=== PATIENT | male | born 1965 | race Caucasian/White ===

== ENCOUNTER 2017-11-25 02:26 | Observation (INO) | payer MEDICARE ==
[~2017-11-25] VITALS: Ht 175.3 cm; Wt 115.8 kg
[~2017-11-25 02:26] MED LIST: CEFD300C37 PO; LISI5TAB7 PO; METF500T PO; PRED20TA PO; QUET100T PO; QUET25TA PO
[2017-11-25 03:02] LABS: BASOPHILS # (AUTO) 0.03 x10^3/uL (0-0.1); BASOPHILS % (AUTO) 0 % (0-1); EOSINOPHILS # (AUTO) 0.43 x10^3/uL (0-0.4); EOSINOPHILS % (AUTO) 4 % (1-7); LYMPHOCYTES # (AUTO) 2.11 x10^3/uL (1-3.4); LYMPHOCYTES % (AUTO) 20 % (22-44); MD NO; MEAN CORPUSCULAR HEMOGLOBIN 27.8 pg (27.5-34.5); MEAN CORPUSCULAR HGB CONC 32.8 g/dL (33.2-36.2); MEAN CORPUSCULAR VOLUME 84.6 fL (81-97); MEAN PLATELET VOLUME 8.1 fL (7.4-10.4); MONOCYTES # (AUTO) 0.83 x10^3/uL (0.2-0.8); MONOCYTES % (AUTO) 8 % (2-9); NEUTROPHILS # (AUTO) 6.95 x10^3/uL (1.8-6.8); NEUTROPHILS % (AUTO) 67 % (42-75); PLATELET COUNT 353 x10^3/uL (130-400); RED BLOOD COUNT 5.38 x10^6/uL (4.38-5.82)
[2017-11-25 03:13] LABS: ALBUMIN 3.5 g/dL (3.4-5.0); ANION GAP 7 mmol/L (5-15); CALCIUM 8.6 mg/dL (8.5-10.1); CHLORIDE 106 mmol/L (98-107); CREATININE 1.01 mg/dL (0.7-1.3); SALICYLATE LEVEL 1.7 mg/dL (2.8-20.0)
[2017-11-25 03:15] LABS: AMPHETAMINE SCREEN, URINE Negative (Negative); BARBITURATE SCREEN, URINE Negative (Negative); BENZODIAZEPINE SCREEN, URINE Negative (Negative); CANNABINOID SCREEN, URINE Negative (Negative); COCAINE SCREEN, URINE Negative (Negative); METHADONE SCREEN, URINE Negative (Negative); OPIATE SCREEN, URINE Negative (Negative)
[2017-11-25 03:24] LABS: ACETAMINOPHEN < 2 mcg/mL (10-30)
[2017-11-25] MEDS ORDERED: ZIPR60CA2 PO (03:46)
[2017-11-25] MEDS ORDERED: ACETAMINOPHEN 325 MG TABLET PO PRN (09:30)
[2017-11-25] MEDS ORDERED: BENZTROPINE 1 MG TABLET PO PRN (09:30)
[2017-11-25] MEDS ORDERED: ZIPRASIDONE 20MG CAPSULE ONE (09:42)
[2017-11-25 14:33] VITALS: BP 130/81
[2017-11-25] MEDS: LISINOPRIL 5 MG TABLET PO SCH (15:30)
[2017-11-25] MEDS: ZIPRASIDONE 20MG CAPSULE PO SCH (16:30)
[2017-11-25 20:37] VITALS: BP 104/67
[2017-11-26 08:00] VITALS: BP 110/75
[2017-11-26] MEDS: LISINOPRIL 5 MG TABLET PO SCH (09:08)
[2017-11-26] MEDS: ZIPRASIDONE 20MG CAPSULE PO SCH (09:08)
[2017-11-26 19:23] VITALS: BP 140/76
[2017-11-26 21:01] VITALS: BP 124/87
[2017-11-26] MEDS: ZIPRASIDONE 20MG CAPSULE PO PRN (21:13)
[2017-11-27 08:00] VITALS: BP 116/81
[2017-11-27] MEDS: LISINOPRIL 5 MG TABLET PO SCH (08:03)
[2017-11-27] MEDS: ZIPRASIDONE 20MG CAPSULE PO SCH (08:04)
[2017-11-27 20:00] VITALS: BP 115/75
[2017-11-27] MEDS: ZIPRASIDONE 20MG CAPSULE PO PRN (20:10)
[2017-11-28 08:21] VITALS: BP 124/86
[2017-11-28] MEDS: LISINOPRIL 5 MG TABLET PO SCH (08:52)
[2017-11-28] MEDS: ZIPRASIDONE 20MG CAPSULE PO SCH (08:52)
[2017-11-28] MEDS ORDERED: ZIPRASIDONE 20MG CAPSULE PO ONE (12:00)
[2017-11-28 19:23] VITALS: BP 127/85
[2017-11-28] MEDS ORDERED: DIPHENHYDRAMINE 50 MG CAPSULE PO PRN (20:30)
[2017-11-29 07:54] VITALS: BP 115/82
[2017-11-29] MEDS: LISINOPRIL 5 MG TABLET PO SCH (08:30)
[2017-11-29] MEDS ORDERED: ZIPR20CA2 PO (10:51)
[2017-11-29] MEDS ORDERED: LISI5TAB7 PO (10:51)
[2017-11-29] MEDS ORDERED: ZIPRASIDONE 20MG CAPSULE PO SCH ×2 (17:00)
[2017-11-29 19:32] VITALS: BP 105/63
== END 2017-11-29 19:33 | disposition home or self-care (01) ==
LOC: ED 05:16 → EDIP 07:12 → 2N 14:20
PROVIDERS: ADMIT Internal Medicine; ATTEND Internal Medicine
DX: R45.851 Suicidal ideations (principal); F20.0 Paranoid schizophrenia; F20.1 Disorganized schizophrenia; I10 Essential (primary) hypertension; E66.01 Morbid (severe) obesity due to excess calories; F17.210 Nicotine dependence, cigarettes, uncomplicated; Z59.0 Homelessness; Z91.5 Personal history of self-harm
CPT/HCPCS: 36415; 80048; 80307; 80329; 82040; 85025; 99285; G0378; G0479; G0480

== ENCOUNTER 2018-01-17 08:45 | Emergency (ER) | payer MEDICARE, MEDICAID ==
[~2018-01-17] VITALS: Ht 175.3 cm; Wt 113.3 kg
[~2018-01-17 08:45] MED LIST changes: +ZIPR20CA2 PO; +ZIPR60CA2 PO
[2018-01-17 08:52] VITALS: BP 124/79
[2018-01-17] MEDS ORDERED: METHOCARBAMOL 750 MG TABLET ONE (09:57)
[2018-01-17] MEDS ORDERED: KETOROLAC 30 MG/1 ML ONE (09:57)
[2018-01-17] MEDS ORDERED: METHOCARBAMOL 750 MG TABLET PO ONE (10:00)
[2018-01-17] MEDS ORDERED: KETOROLAC 30 MG/1 ML IM ONE (10:00)
== END 2018-01-17 11:54 | disposition home or self-care (01) ==
LOC: ED 09:59
DX: M54.6 Pain in thoracic spine (principal); I10 Essential (primary) hypertension
CPT/HCPCS: 72072; 72110; 96372; 99284; J1885

== ENCOUNTER 2018-01-27 17:00 | Emergency (ER) | payer MEDICARE, MEDICAID ==
[~2018-01-27] VITALS: Ht 175.3 cm; Wt 111.0 kg
[2018-01-27 17:49] LABS: BASOPHILS # (AUTO) 0.02 x10^3/uL (0-0.1); BASOPHILS % (AUTO) 0 % (0-1); EOSINOPHILS # (AUTO) 0.22 x10^3/uL (0-0.4); EOSINOPHILS % (AUTO) 2 % (1-7); LYMPHOCYTES # (AUTO) 1.93 x10^3/uL (1-3.4); LYMPHOCYTES % (AUTO) 14 % (22-44); MD NO; MEAN CORPUSCULAR HEMOGLOBIN 27.9 pg (27.5-34.5); MEAN CORPUSCULAR HGB CONC 33.2 g/dL (33.2-36.2); MEAN PLATELET VOLUME 8.5 fL (7.4-10.4); MONOCYTES # (AUTO) 0.84 x10^3/uL (0.2-0.8); MONOCYTES % (AUTO) 6 % (2-9); NEUTROPHILS # (AUTO) 11.29 x10^3/uL (1.8-6.8); NEUTROPHILS % (AUTO) 79 % (42-75); PLATELET COUNT 337 x10^3/uL (130-400); RED BLOOD COUNT 5.61 x10^6/uL (4.38-5.82); RED CELL DISTRIBUTION WIDTH 16.4 % (9.4-14.8)
[2018-01-27 17:55] LABS: ALBUMIN 3.8 g/dL (3.4-5.0); ANION GAP 8 mmol/L (5-15); CALCIUM 8.4 mg/dL (8.5-10.1); CHLORIDE 104 mmol/L (98-107); SALICYLATE LEVEL 2.8 mg/dL (2.8-20.0)
[2018-01-27 17:58] LABS: ALANINE AMINOTRANSFERASE 29 U/L (12-78); ALKALINE PHOSPHATASE 128 U/L (45-117); BILIRUBIN,TOTAL 0.4 mg/dL (0.2-1.0); CREATININE 0.94 mg/dL (0.7-1.3); TOTAL PROTEIN 7.3 g/dL (6.4-8.2)
[2018-01-27 17:59] VITALS: BP 132/83
[2018-01-27 18:01] LABS: ACETAMINOPHEN < 2 mcg/mL (10-30)
[2018-01-27 19:07] LABS: AMPHETAMINE SCREEN, URINE Negative (Negative); BARBITURATE SCREEN, URINE Negative (Negative); BENZODIAZEPINE SCREEN, URINE Negative (Negative); CANNABINOID SCREEN, URINE Negative (Negative); COCAINE SCREEN, URINE Negative (Negative); METHADONE SCREEN, URINE Negative (Negative); OPIATE SCREEN, URINE Negative (Negative)
[2018-01-27] MEDS ORDERED: OLANZAPINE 10 MG TABLET ONE (19:50)
[2018-01-27] MEDS ORDERED: OLANZAPINE 10 MG TABLET PO ONE (20:00)
== END 2018-01-27 20:54 | disposition home or self-care (01) ==
LOC: ED 20:48
DX: F32.9 Major depressive disorder, single episode, unspecified (principal); Z76.5 Malingerer [conscious simulation]; F25.9 Schizoaffective disorder, unspecified; I10 Essential (primary) hypertension; E11.9 Type 2 diabetes mellitus without complications; M19.90 Unspecified osteoarthritis, unspecified site; Z79.899 Other long term (current) drug therapy
CPT/HCPCS: 36415; 80053; 80307; 80329; 85025; 99284; G0480

== ENCOUNTER 2018-02-07 10:07 | Observation (INO) | payer MEDICAID, MEDICARE, OTHER ==
[~2018-02-07] VITALS: Ht 175.3 cm; Wt 110.4 kg
[2018-02-07 11:16] LABS: MEAN CORPUSCULAR VOLUME 83.6 fL (81-97)
[2018-02-07 11:17] LABS: BASOPHILS # (AUTO) 0.03 x10^3/uL (0-0.1); BASOPHILS % (AUTO) 0 % (0-1); EOSINOPHILS # (AUTO) 0.51 x10^3/uL (0-0.4); EOSINOPHILS % (AUTO) 4 % (1-7); LYMPHOCYTES # (AUTO) 1.39 x10^3/uL (1-3.4); LYMPHOCYTES % (AUTO) 11 % (22-44); MD NO; MEAN CORPUSCULAR HEMOGLOBIN 27.2 pg (27.5-34.5); MEAN CORPUSCULAR HGB CONC 32.5 g/dL (33.2-36.2); MONOCYTES # (AUTO) 0.61 x10^3/uL (0.2-0.8); MONOCYTES % (AUTO) 5 % (2-9); NEUTROPHILS # (AUTO) 9.72 x10^3/uL (1.8-6.8); NEUTROPHILS % (AUTO) 79 % (42-75); PLATELET COUNT 388 x10^3/uL (130-400); RED CELL DISTRIBUTION WIDTH 15.9 % (9.4-14.8)
[2018-02-07 11:26] LABS: ALBUMIN 3.5 g/dL (3.4-5.0); ANION GAP 9 mmol/L (5-15); CALCIUM 8.4 mg/dL (8.5-10.1); CHLORIDE 106 mmol/L (98-107); CREATININE 0.96 mg/dL (0.7-1.3)
[2018-02-07 11:38] LABS: ACETAMINOPHEN < 2 mcg/mL (10-30)
[2018-02-07 11:42] LABS: AMPHETAMINE SCREEN, URINE Negative (Negative); BARBITURATE SCREEN, URINE Negative (Negative); BENZODIAZEPINE SCREEN, URINE Negative (Negative); CANNABINOID SCREEN, URINE Negative (Negative); COCAINE SCREEN, URINE Negative (Negative); METHADONE SCREEN, URINE Negative (Negative); OPIATE SCREEN, URINE Negative (Negative)
[2018-02-07] MEDS ORDERED: POLYETHYLENE GLYCOL 17 GM PACKET PO PRN (12:30)
[2018-02-07] MEDS ORDERED: ZIPRASIDONE 20 MG INJ IM PRN (12:30)
[2018-02-07] MEDS ORDERED: ACETAMINOPHEN 325 MG TABLET PO PRN (12:30)
[2018-02-07] MEDS ORDERED: ZIPRASIDONE 20MG CAPSULE PO PRN (12:30)
[2018-02-07] MEDS ORDERED: ONDANSETRON ODT 4 MG PO PRN (12:30)
[2018-02-07] MEDS: LISINOPRIL 5 MG TABLET PO SCH (13:02)
[2018-02-07] MEDS ORDERED: ZIPRASIDONE 20MG CAPSULE ONE (16:44)
[2018-02-07] MEDS: ZIPRASIDONE 20MG CAPSULE PO SCH (16:46)
[2018-02-08] MEDS: LISINOPRIL 5 MG TABLET PO SCH (09:08)
[2018-02-08 23:53] VITALS: BP 136/91
[2018-02-09] MEDS: ZIPRASIDONE 20MG CAPSULE PO SCH (00:11)
[2018-02-09 08:55] VITALS: BP 115/71
[2018-02-09] MEDS: LISINOPRIL 5 MG TABLET PO SCH (08:58)
== END 2018-02-09 13:02 ==
LOC: SUATTDRO 12:08 → ED 12:15 → EDIP 12:16 → ED 12:25 → 2N 02-08 23:47
PROVIDERS: ADMIT Family Medicine; ATTEND Family Medicine
DX: R45.851 Suicidal ideations (principal); R44.0 Auditory hallucinations; F33.2 Major depressive disorder, recurrent severe without psychotic features; F20.0 Paranoid schizophrenia; I10 Essential (primary) hypertension; F17.210 Nicotine dependence, cigarettes, uncomplicated; E11.9 Type 2 diabetes mellitus without complications; Z59.0 Homelessness
CPT/HCPCS: 36415; 80048; 80307; 80329; 82040; 85025; 99285; G0378; G0480

== ENCOUNTER 2018-02-18 20:09 | Observation (INO) | payer MEDICARE, MEDICAID ==
[~2018-02-18] VITALS: Ht 175.3 cm; Wt 107.5 kg
[2018-02-18 20:44] LABS: BASOPHILS # (AUTO) 0.03 x10^3/uL (0-0.1); BASOPHILS % (AUTO) 0 % (0-1); EOSINOPHILS # (AUTO) 0.29 x10^3/uL (0-0.4); EOSINOPHILS % (AUTO) 2 % (1-7); LYMPHOCYTES # (AUTO) 1.76 x10^3/uL (1-3.4); LYMPHOCYTES % (AUTO) 12 % (22-44); MD NO; MEAN CORPUSCULAR HEMOGLOBIN 27.3 pg (27.5-34.5); MEAN CORPUSCULAR HGB CONC 32.9 g/dL (33.2-36.2); MEAN CORPUSCULAR VOLUME 83.2 fL (81-97); MEAN PLATELET VOLUME 8.4 fL (7.4-10.4); MONOCYTES # (AUTO) 0.75 x10^3/uL (0.2-0.8); MONOCYTES % (AUTO) 5 % (2-9); NEUTROPHILS # (AUTO) 12.41 x10^3/uL (1.8-6.8); NEUTROPHILS % (AUTO) 81 % (42-75); PLATELET COUNT 389 x10^3/uL (130-400); RED BLOOD COUNT 5.94 x10^6/uL (4.38-5.82); RED CELL DISTRIBUTION WIDTH 15.9 % (9.4-14.8)
[2018-02-18 20:55] LABS: ALBUMIN 3.7 g/dL (3.4-5.0); ANION GAP 7 mmol/L (5-15); CALCIUM 8.7 mg/dL (8.5-10.1); CHLORIDE 108 mmol/L (98-107); CREATININE 1.14 mg/dL (0.7-1.3)
[2018-02-18 20:56] LABS: ACETAMINOPHEN < 2 mcg/mL (10-30); SALICYLATE LEVEL < 1.7 mg/dL (2.8-20.0)
[2018-02-18 21:46] LABS: AMPHETAMINE SCREEN, URINE Negative (Negative); BARBITURATE SCREEN, URINE Negative (Negative); BENZODIAZEPINE SCREEN, URINE Negative (Negative); CANNABINOID SCREEN, URINE Negative (Negative); COCAINE SCREEN, URINE Negative (Negative); METHADONE SCREEN, URINE Negative (Negative); OPIATE SCREEN, URINE Negative (Negative)
[2018-02-19] MEDS ORDERED: DOCUSATE 100 MG CAPSULE PO PRN (03:00)
[2018-02-19] MEDS ORDERED: ONDANSETRON ODT 4 MG PO PRN (03:00)
[2018-02-19] MEDS ORDERED: ACETAMINOPHEN 325 MG TABLET PO PRN (03:00)
[2018-02-19 03:29] VITALS: BP 133/80
[2018-02-19] MEDS: OLANZAPINE 10 MG TABLET PO SCH (08:47)
[2018-02-19] MEDS: LISINOPRIL 5 MG TABLET PO SCH (08:47)
[2018-02-19] MEDS: NICOTINE 7 MG/24 HR PATCH.TD24 TD SCH (08:52)
[2018-02-19 08:59] VITALS: BP 119/76
[2018-02-19 19:53] VITALS: BP 124/84
[2018-02-20 08:14] VITALS: BP 126/75
[2018-02-20] MEDS: NICOTINE 7 MG/24 HR PATCH.TD24 TD SCH (08:18)
[2018-02-20] MEDS: OLANZAPINE 10 MG TABLET PO SCH (08:18)
[2018-02-20] MEDS: LISINOPRIL 5 MG TABLET PO SCH (08:18)
[2018-02-20 19:28] VITALS: BP 113/71
[2018-02-21 08:00] VITALS: BP 106/69
[2018-02-21] MEDS: OLANZAPINE 10 MG TABLET PO SCH ×2 (08:47→20:58)
[2018-02-21] MEDS: LISINOPRIL 5 MG TABLET PO SCH (08:47)
[2018-02-21] MEDS: NICOTINE 7 MG/24 HR PATCH.TD24 TD SCH (08:50)
[2018-02-21 20:00] VITALS: BP 120/79
[2018-02-22 07:30] VITALS: BP 100/64
[2018-02-22] MEDS: NICOTINE 7 MG/24 HR PATCH.TD24 TD SCH (08:51)
[2018-02-22] MEDS: LISINOPRIL 5 MG TABLET PO SCH (08:51)
[2018-02-22 20:16] VITALS: BP 134/78
[2018-02-22] MEDS: OLANZAPINE 10 MG TABLET PO SCH (20:34)
[2018-02-23 07:37] VITALS: BP 110/75
[2018-02-23] MEDS: NICOTINE 7 MG/24 HR PATCH.TD24 TD SCH (09:00)
[2018-02-23] MEDS: LISINOPRIL 5 MG TABLET PO SCH (09:55)
[2018-02-23 19:55] VITALS: BP 126/83
[2018-02-23] MEDS: OLANZAPINE 10 MG TABLET PO SCH (20:23)
[2018-02-24] MEDS: NICOTINE 7 MG/24 HR PATCH.TD24 TD SCH (07:07)
[2018-02-24 08:28] VITALS: BP 109/74
[2018-02-24] MEDS: LISINOPRIL 5 MG TABLET PO SCH (09:03)
[2018-02-24] MEDS ORDERED: OLAN10TA9 PO (15:33)
== END 2018-02-24 16:17 | disposition home or self-care (01) ==
LOC: ED 23:59 → INTOOBSV 02-19 02:46 → EDIP 02-19 02:46 → 3E 02-19 03:25
PROVIDERS: ADMIT Internal Medicine; ATTEND Internal Medicine
DX: F25.9 Schizoaffective disorder, unspecified (principal); F23 Brief psychotic disorder; R45.851 Suicidal ideations; I10 Essential (primary) hypertension; E11.9 Type 2 diabetes mellitus without complications; R44.0 Auditory hallucinations; R44.1 Visual hallucinations; B86 Scabies; F32.9 Major depressive disorder, single episode, unspecified; F17.200 Nicotine dependence, unspecified, uncomplicated; Z91.14 Patient's other noncompliance with medication regimen; Z59.0 Homelessness
CPT/HCPCS: 36415; 80048; 80307; 80329; 82040; 85025; 99285; G0378; G0480

== ENCOUNTER 2018-03-02 00:37 | Emergency (ER) | payer MEDICARE, MEDICAID ==
[~2018-03-02] VITALS: Ht 175.3 cm; Wt 113.1 kg
[~2018-03-02 00:37] MED LIST changes: +OLAN10TA9 PO
[2018-03-02 00:40] VITALS: BP 163/94
== END 2018-03-02 02:07 | disposition home or self-care (01) ==
LOC: ED 01:13
DX: F32.9 Major depressive disorder, single episode, unspecified (principal); Z72.89 Other problems related to lifestyle; E11.9 Type 2 diabetes mellitus without complications; I10 Essential (primary) hypertension
CPT/HCPCS: 99284

== ENCOUNTER 2018-04-17 12:46 | Observation (INO) | payer MEDICARE, MEDICAID ==
[~2018-04-17] VITALS: Ht 175.3 cm; Wt 100.0 kg
[2018-04-17 13:43] LABS: BASOPHILS # (AUTO) 0.03 x10^3/uL (0-0.1); BASOPHILS % (AUTO) 0 % (0-1); EOSINOPHILS % (AUTO) 4 % (1-7); LYMPHOCYTES # (AUTO) 2.08 x10^3/uL (1-3.4); LYMPHOCYTES % (AUTO) 19 % (22-44); MD NO; MEAN CORPUSCULAR HEMOGLOBIN 27.3 pg (27.5-34.5); MEAN CORPUSCULAR VOLUME 82.9 fL (81-97); MONOCYTES # (AUTO) 0.71 x10^3/uL (0.2-0.8); MONOCYTES % (AUTO) 7 % (2-9); NEUTROPHILS # (AUTO) 7.51 x10^3/uL (1.8-6.8); NEUTROPHILS % (AUTO) 70 % (42-75); PLATELET COUNT 386 x10^3/uL (130-400); RED BLOOD COUNT 5.83 x10^6/uL (4.38-5.82); RED CELL DISTRIBUTION WIDTH 16.7 % (9.4-14.8)
[2018-04-17 13:53] LABS: ALBUMIN 3.5 g/dL (3.4-5.0); ANION GAP 8 mmol/L (5-15); CALCIUM 8.3 mg/dL (8.5-10.1); CHLORIDE 108 mmol/L (98-107); CREATININE 0.89 mg/dL (0.7-1.3); SALICYLATE LEVEL 2.4 mg/dL (2.8-20.0)
[2018-04-17 14:00] LABS: ACETAMINOPHEN < 2 mcg/mL (10-30)
[2018-04-17 14:36] LABS: AMPHETAMINE SCREEN, URINE Negative (Negative); BARBITURATE SCREEN, URINE Negative (Negative); BENZODIAZEPINE SCREEN, URINE Negative (Negative); CANNABINOID SCREEN, URINE Negative (Negative); COCAINE SCREEN, URINE Negative (Negative); METHADONE SCREEN, URINE Negative (Negative); OPIATE SCREEN, URINE Negative (Negative)
[2018-04-17] MEDS ORDERED: OLAN2.5T10 PO (14:48)
[2018-04-17] MEDS ORDERED: LISI-167 PO (14:48)
[2018-04-17] MEDS ORDERED: ACETAMINOPHEN 325 MG TABLET PO PRN (16:30)
[2018-04-17] MEDS ORDERED: LORazepam 1MG TABLET PO PRN (16:30)
[2018-04-17] MEDS ORDERED: ONDANSETRON ODT 4 MG PO PRN (16:30)
[2018-04-18] MEDS ORDERED: OLANZAPINE 2.5 MG TABLET ONE (09:42)
[2018-04-18] MEDS ORDERED: LISINOPRIL 10 MG TABLET ONE (09:42)
[2018-04-18] MEDS ORDERED: SERTRALINE 50MG TABLET ONE (09:43)
[2018-04-18] MEDS: OLANZAPINE 2.5 MG TABLET PO SCH (09:47)
[2018-04-18] MEDS: LISINOPRIL 10 MG TABLET PO SCH (09:47)
[2018-04-18] MEDS: SERTRALINE 50MG TABLET PO SCH (09:47)
[2018-04-18 21:58] VITALS: BP 127/94
[2018-04-19 08:03] VITALS: BP 133/85
[2018-04-19] MEDS: OLANZAPINE 2.5 MG TABLET PO SCH (09:01)
[2018-04-19] MEDS: LISINOPRIL 10 MG TABLET PO SCH (09:01)
[2018-04-19] MEDS: SERTRALINE 50MG TABLET PO SCH (09:01)
[2018-04-19 19:44] VITALS: BP 128/76
[2018-04-20 07:53] VITALS: BP 123/81
[2018-04-20] MEDS: SERTRALINE 50MG TABLET PO SCH (08:34)
[2018-04-20] MEDS: OLANZAPINE 2.5 MG TABLET PO SCH (08:34)
[2018-04-20] MEDS: LISINOPRIL 10 MG TABLET PO SCH (08:34)
[2018-04-20 20:06] VITALS: BP 139/82
[2018-04-21 07:30] VITALS: BP 87/58
[2018-04-21] MEDS: LISINOPRIL 10 MG TABLET PO SCH (09:00)
[2018-04-21] MEDS: OLANZAPINE 2.5 MG TABLET PO SCH (09:53)
[2018-04-21] MEDS: SERTRALINE 50MG TABLET PO SCH (09:54)
[2018-04-21 19:51] VITALS: BP 131/84
[2018-04-22 07:38] VITALS: BP 124/82
[2018-04-22] MEDS: SERTRALINE 50MG TABLET PO SCH (08:44)
[2018-04-22] MEDS: OLANZAPINE 2.5 MG TABLET PO SCH (08:44)
[2018-04-22] MEDS: LISINOPRIL 10 MG TABLET PO SCH (08:44)
[2018-04-22 19:33] VITALS: BP 132/77
[2018-04-23 07:41] VITALS: BP 112/80
[2018-04-23] MEDS: SERTRALINE 50MG TABLET PO SCH (09:28)
[2018-04-23] MEDS: LISINOPRIL 10 MG TABLET PO SCH (09:28)
[2018-04-23] MEDS: OLANZAPINE 2.5 MG TABLET PO SCH (09:28)
== END 2018-04-23 15:20 | disposition home or self-care (01) ==
LOC: ED 14:03 → INTOOBSV 16:18 → EDIP 16:18 → 3E 04-18 21:56
PROVIDERS: ADMIT Surgery; ATTEND Surgery
DX: R44.0 Auditory hallucinations (principal); F20.0 Paranoid schizophrenia; D72.829 Elevated white blood cell count, unspecified; E11.65 Type 2 diabetes mellitus with hyperglycemia; F17.210 Nicotine dependence, cigarettes, uncomplicated; F25.9 Schizoaffective disorder, unspecified; I11.9 Hypertensive heart disease without heart failure
CPT/HCPCS: 36415; 80048; 80307; 80329; 82040; 85025; 99285; G0378; G0480

== ENCOUNTER 2018-04-24 05:39 | Emergency (ER) | payer MEDICARE, MEDICAID ==
[~2018-04-24] VITALS: Ht 177.8 cm; Wt 100.0 kg
[~2018-04-24 05:39] MED LIST changes: +LISI-167 PO; +OLAN2.5T10 PO
[2018-04-24] MEDS ORDERED: ASPIRIN 81 MG TABLET CHEW PO ONE (06:00)
[2018-04-24] MEDS ORDERED: ASPIRIN 81 MG TABLET CHEW ONE (06:01)
[2018-04-24 06:35] LABS: BASOPHILS # (AUTO) 0.04 x10^3/uL (0-0.1); BASOPHILS % (AUTO) 0 % (0-1); EOSINOPHILS # (AUTO) 0.31 x10^3/uL (0-0.4); EOSINOPHILS % (AUTO) 3 % (1-7); LYMPHOCYTES # (AUTO) 1.78 x10^3/uL (1-3.4); LYMPHOCYTES % (AUTO) 14 % (22-44); MD NO; MEAN CORPUSCULAR HEMOGLOBIN 27.4 pg (27.5-34.5); MEAN CORPUSCULAR HGB CONC 33.2 g/dL (33.2-36.2); MEAN CORPUSCULAR VOLUME 82.6 fL (81-97); MEAN PLATELET VOLUME 8.2 fL (7.4-10.4); MONOCYTES # (AUTO) 0.74 x10^3/uL (0.2-0.8); MONOCYTES % (AUTO) 6 % (2-9); NEUTROPHILS # (AUTO) 9.59 x10^3/uL (1.8-6.8); NEUTROPHILS % (AUTO) 77 % (42-75); PLATELET COUNT 313 x10^3/uL (130-400); RED BLOOD COUNT 5.97 x10^6/uL (4.38-5.82); RED CELL DISTRIBUTION WIDTH 16.4 % (9.4-14.8)
[2018-04-24 06:47] LABS: ALBUMIN 3.5 g/dL (3.4-5.0); ANION GAP 7 mmol/L (5-15); CALCIUM 8.8 mg/dL (8.5-10.1); CHLORIDE 105 mmol/L (98-107); CREATININE 0.93 mg/dL (0.7-1.3)
[2018-04-24 06:50] LABS: TROPONIN I < 0.015 ng/mL (0.000-0.045)
[2018-04-24 08:01] VITALS: BP 117/70
== END 2018-04-24 08:13 | disposition home or self-care (01) ==
LOC: ED 05:49
DX: S80.02XA Contusion of left knee, initial encounter (principal); R07.89 Other chest pain; E11.9 Type 2 diabetes mellitus without complications; I10 Essential (primary) hypertension; W01.0XXA Fall on same level from slipping, tripping and stumbling without subsequent striking against object, initial encounter; Y93.89 Activity, other specified; Y92.89 Other specified places as the place of occurrence of the external cause; Y99.8 Other external cause status
CPT/HCPCS: 36415; 71046; 80048; 82040; 84484; 85025; 93005; 99285

== ENCOUNTER 2018-05-05 16:56 | Emergency (ER) | payer MEDICARE, MEDICAID ==
[~2018-05-05] VITALS: Ht 170.2 cm; Wt 116.0 kg
[2018-05-05 18:18] VITALS: BP 160/88
== END 2018-05-05 18:37 | disposition home or self-care (01) ==
LOC: ED 18:24
DX: J98.01 Acute bronchospasm (principal); I10 Essential (primary) hypertension
CPT/HCPCS: 71046; 99284

== ENCOUNTER 2018-05-18 21:52 | Emergency (ER) | payer MEDICARE, MEDICAID ==
[~2018-05-18] VITALS: Ht 175.3 cm; Wt 115.5 kg
[2018-05-18 22:34] LABS: MICROSCOPIC AUTO
[2018-05-18 22:38] LABS: BASOPHILS # (AUTO) 0.05 x10^3/uL (0-0.1); BASOPHILS % (AUTO) 1 % (0-1); EOSINOPHILS # (AUTO) 0.41 x10^3/uL (0-0.4); EOSINOPHILS % (AUTO) 4 % (1-7); LYMPHOCYTES # (AUTO) 2.28 x10^3/uL (1-3.4); LYMPHOCYTES % (AUTO) 21 % (22-44); MD NO; MEAN CORPUSCULAR HGB CONC 32.7 g/dL (33.2-36.2); MEAN CORPUSCULAR VOLUME 82.7 fL (81-97); MEAN PLATELET VOLUME 7.9 fL (7.4-10.4); MONOCYTES # (AUTO) 0.73 x10^3/uL (0.2-0.8); MONOCYTES % (AUTO) 7 % (2-9); NEUTROPHILS # (AUTO) 7.52 x10^3/uL (1.8-6.8); NEUTROPHILS % (AUTO) 69 % (42-75); PLATELET COUNT 392 x10^3/uL (130-400); RED BLOOD COUNT 5.52 x10^6/uL (4.38-5.82); RED CELL DISTRIBUTION WIDTH 16.9 % (9.4-14.8)
[2018-05-18 22:38] LABS: CULTURE INDICATED? YES
[2018-05-18 22:43] LABS: AMPHETAMINE SCREEN, URINE Negative (Negative); BARBITURATE SCREEN, URINE Negative (Negative); BENZODIAZEPINE SCREEN, URINE Negative (Negative); CANNABINOID SCREEN, URINE Negative (Negative); COCAINE SCREEN, URINE Negative (Negative); METHADONE SCREEN, URINE Negative (Negative); OPIATE SCREEN, URINE Negative (Negative)
[2018-05-18] MEDS ORDERED: SERT50TA PO (22:46)
[2018-05-18 22:50] LABS: ALANINE AMINOTRANSFERASE 20 U/L (12-78); ALBUMIN 3.4 g/dL (3.4-5.0); ANION GAP 8 mmol/L (5-15); CALCIUM 8.8 mg/dL (8.5-10.1); CHLORIDE 104 mmol/L (98-107); CREATININE 0.97 mg/dL (0.7-1.3)
[2018-05-18 22:51] LABS: SALICYLATE LEVEL < 1.7 mg/dL (2.8-20.0)
[2018-05-18 22:52] LABS: ALKALINE PHOSPHATASE 140 U/L (45-117); BILIRUBIN,TOTAL 0.3 mg/dL (0.2-1.0)
[2018-05-18 22:53] LABS: ACETAMINOPHEN < 2 mcg/mL (10-30)
[2018-05-19] MEDS ORDERED: CIPROFLOXACIN 500 MG TABLET ONE (01:14)
[2018-05-19 01:23] VITALS: BP 116/82
[2018-05-19] MEDS ORDERED: CIPROFLOXACIN 500 MG TABLET PO ONE (01:30)
== END 2018-05-19 01:32 | disposition home or self-care (01) ==
LOC: ED 23:04
DX: N30.00 Acute cystitis without hematuria (principal); R10.32 Left lower quadrant pain; R44.0 Auditory hallucinations; E11.9 Type 2 diabetes mellitus without complications; I10 Essential (primary) hypertension; F20.9 Schizophrenia, unspecified
CPT/HCPCS: 36415; 74176; 80053; 80307; 80329; 81001; 85025; 87077; 87086; 93005; 99285; G0480

== ENCOUNTER 2018-05-22 12:32 | Emergency (ER) | payer MEDICARE, MEDICAID ==
[~2018-05-22] VITALS: Ht 175.3 cm; Wt 115.0 kg
[~2018-05-22 12:32] MED LIST changes: +SERT50TA PO
[2018-05-22 12:57] VITALS: BP 136/72
[2018-05-22 13:07] LABS: BASOPHILS # (AUTO) 0.06 x10^3/uL (0-0.1); BASOPHILS % (AUTO) 1 % (0-1); EOSINOPHILS # (AUTO) 0.57 x10^3/uL (0-0.4); EOSINOPHILS % (AUTO) 5 % (1-7); LYMPHOCYTES # (AUTO) 2.06 x10^3/uL (1-3.4); LYMPHOCYTES % (AUTO) 18 % (22-44); MD NO; MEAN CORPUSCULAR HEMOGLOBIN 26.6 pg (27.5-34.5); MEAN CORPUSCULAR HGB CONC 32.3 g/dL (33.2-36.2); MEAN CORPUSCULAR VOLUME 82.3 fL (81-97); MEAN PLATELET VOLUME 7.9 fL (7.4-10.4); MONOCYTES # (AUTO) 0.91 x10^3/uL (0.2-0.8); MONOCYTES % (AUTO) 8 % (2-9); NEUTROPHILS # (AUTO) 7.79 x10^3/uL (1.8-6.8); NEUTROPHILS % (AUTO) 68 % (42-75); PLATELET COUNT 384 x10^3/uL (130-400); RED BLOOD COUNT 5.48 x10^6/uL (4.38-5.82); RED CELL DISTRIBUTION WIDTH 16.4 % (9.4-14.8)
[2018-05-22 13:19] LABS: ALBUMIN 3.3 g/dL (3.4-5.0); ANION GAP 5 mmol/L (5-15); CHLORIDE 109 mmol/L (98-107); SALICYLATE LEVEL 2.1 mg/dL (2.8-20.0)
[2018-05-22 13:21] LABS: CREATININE 0.83 mg/dL (0.7-1.3)
[2018-05-22 13:25] LABS: ACETAMINOPHEN < 2 mcg/mL (10-30)
[2018-05-22 13:48] LABS: BARBITURATE SCREEN, URINE Negative (Negative); BENZODIAZEPINE SCREEN, URINE Negative (Negative); CANNABINOID SCREEN, URINE Negative (Negative); COCAINE SCREEN, URINE Negative (Negative); METHADONE SCREEN, URINE Negative (Negative); OPIATE SCREEN, URINE Negative (Negative)
[2018-05-22 13:49] LABS: AMPHETAMINE SCREEN, URINE Negative (Negative)
== END 2018-05-22 16:42 | disposition home or self-care (01) ==
LOC: ED 12:52
DX: F25.9 Schizoaffective disorder, unspecified (principal); E11.9 Type 2 diabetes mellitus without complications; I10 Essential (primary) hypertension; F20.9 Schizophrenia, unspecified; F32.9 Major depressive disorder, single episode, unspecified; Z79.899 Other long term (current) drug therapy
CPT/HCPCS: 36415; 80048; 80307; 80329; 82040; 85025; 99284; G0480

== ENCOUNTER 2018-06-05 13:27 | Emergency (ER) | payer MEDICARE, MEDICAID ==
[~2018-06-05] VITALS: Ht 175.3 cm; Wt 114.5 kg
[2018-06-05 13:43] VITALS: BP 112/64
[2018-06-05 14:07] LABS: BASOPHILS # (AUTO) 0.05 x10^3/uL (0-0.1); BASOPHILS % (AUTO) 1 % (0-1); EOSINOPHILS # (AUTO) 0.57 x10^3/uL (0-0.4); EOSINOPHILS % (AUTO) 6 % (1-7); LYMPHOCYTES # (AUTO) 1.94 x10^3/uL (1-3.4); LYMPHOCYTES % (AUTO) 20 % (22-44); MD NO; MEAN CORPUSCULAR HEMOGLOBIN 26.9 pg (27.5-34.5); MEAN CORPUSCULAR HGB CONC 32.6 g/dL (33.2-36.2); MEAN CORPUSCULAR VOLUME 82.6 fL (81-97); MEAN PLATELET VOLUME 7.7 fL (7.4-10.4); MONOCYTES # (AUTO) 0.67 x10^3/uL (0.2-0.8); MONOCYTES % (AUTO) 7 % (2-9); NEUTROPHILS # (AUTO) 6.28 x10^3/uL (1.8-6.8); NEUTROPHILS % (AUTO) 66 % (42-75); PLATELET COUNT 346 x10^3/uL (130-400); RED BLOOD COUNT 5.55 x10^6/uL (4.38-5.82); RED CELL DISTRIBUTION WIDTH 16.3 % (9.4-14.8)
[2018-06-05 14:20] LABS: ALBUMIN 3.1 g/dL (3.4-5.0); ANION GAP 6 mmol/L (5-15); CALCIUM 8.4 mg/dL (8.5-10.1); CHLORIDE 107 mmol/L (98-107); CREATININE 1.02 mg/dL (0.7-1.3); SALICYLATE LEVEL 1.9 mg/dL (2.8-20.0)
[2018-06-05 14:21] LABS: ACETAMINOPHEN < 2 mcg/mL (10-30)
[2018-06-05 14:35] LABS: AMPHETAMINE SCREEN, URINE Negative (Negative); BARBITURATE SCREEN, URINE Negative (Negative); BENZODIAZEPINE SCREEN, URINE Negative (Negative); CANNABINOID SCREEN, URINE Negative (Negative); COCAINE SCREEN, URINE Negative (Negative); METHADONE SCREEN, URINE Negative (Negative); OPIATE SCREEN, URINE Negative (Negative)
== END 2018-06-05 19:30 | disposition home or self-care (01) ==
LOC: ED 16:00
DX: F41.1 Generalized anxiety disorder (principal); F17.200 Nicotine dependence, unspecified, uncomplicated; E11.9 Type 2 diabetes mellitus without complications; I10 Essential (primary) hypertension; F20.9 Schizophrenia, unspecified
CPT/HCPCS: 36415; 80048; 80307; 80329; 82040; 85025; 99284; G0480

== ENCOUNTER 2018-06-07 05:41 | Emergency (ER) | payer MEDICARE, MEDICAID ==
[~2018-06-07] VITALS: Ht 175.3 cm; Wt 111.0 kg
[2018-06-07] MEDS ORDERED: MECLIZINE CHEWABLE 25 MG TAB ONE (06:17)
[2018-06-07] MEDS ORDERED: MECLIZINE CHEWABLE 25 MG TAB PO ONE (06:30)
[2018-06-07 07:45] VITALS: BP 120/64
== END 2018-06-07 08:14 | disposition home or self-care (01) ==
LOC: ED 07:03
DX: H83.01 Labyrinthitis, right ear (principal); H60.90 Unspecified otitis externa, unspecified ear; R05 Cough; I10 Essential (primary) hypertension; E11.9 Type 2 diabetes mellitus without complications; F32.9 Major depressive disorder, single episode, unspecified; F41.1 Generalized anxiety disorder; F25.9 Schizoaffective disorder, unspecified
CPT/HCPCS: 71046; 93005; 99284

== ENCOUNTER 2018-06-23 13:08 | Emergency (ER) | payer MEDICARE, MEDICAID ==
[~2018-06-23] VITALS: Ht 175.3 cm; Wt 111.6 kg
[2018-06-23 13:20] VITALS: BP 155/89
[2018-06-23] MEDS ORDERED: LISINOPRIL 10 MG TABLET ONE (13:26)
[2018-06-23] MEDS ORDERED: LISINOPRIL 10 MG TABLET PO ONE (13:30)
[2018-06-23] MEDS ORDERED: PLEASE ENTER HEIGHT AND WEIGHT MC SCH (13:30)
== END 2018-06-23 13:44 | disposition home or self-care (01) ==
LOC: ED 13:40
DX: I10 Essential (primary) hypertension (principal); R42 Dizziness and giddiness; F20.9 Schizophrenia, unspecified; E11.9 Type 2 diabetes mellitus without complications
CPT/HCPCS: 99283

== ENCOUNTER 2019-06-20 23:40 | Inpatient (IN) | payer MEDICARE, MEDICAID ==
[~2019-06-20] VITALS: Ht 175.3 cm; Wt 121.0 kg
[2019-06-21 08:22] VITALS: BP 131/84
== END 2019-06-21 02:15 | DRG 885 ==
LOC: ED 06-21 00:13 → EDIP 06-21 01:53
PROVIDERS: ADMIT Internal Medicine; ATTEND Internal Medicine
DX: F20.0 Paranoid schizophrenia (principal); R45.851 Suicidal ideations; I10 Essential (primary) hypertension; E11.9 Type 2 diabetes mellitus without complications; F17.210 Nicotine dependence, cigarettes, uncomplicated; Z79.899 Other long term (current) drug therapy; Z91.14 Patient's other noncompliance with medication regimen; Z91.19 Patient's noncompliance with other medical treatment and regimen; Z91.5 Personal history of self-harm; Z88.8 Allergy status to other drugs, medicaments and biological substances; Z59.0 Homelessness
CPT/HCPCS: 36415; 80053; 80307; 85025; 99285

== ENCOUNTER 2019-06-21 06:09 | Inpatient (IN) | payer MEDICARE, MEDICAID ==
[~2019-06-21] VITALS: Ht 175.3 cm; Wt 112.7 kg
[~2019-06-21 06:09] MED LIST changes: +BLOOD PRESSURE MED PO; -QUET25TA PO; +QUET25TA5 PO; +QUET25TA7 PO
[2019-06-21] MEDS ORDERED: BISACODYL 10 MG SUPP PR PRN (06:30)
[2019-06-21] MEDS ORDERED: ONDANSETRON ODT 4 MG PO PRN (06:30)
[2019-06-21] MEDS ORDERED: POLYETHYLENE GLYCOL 17 GM PACKET PO PRN (06:30)
[2019-06-21] MEDS ORDERED: DOCUSATE 100 MG CAPSULE PO PRN (06:30)
[2019-06-21] MEDS ORDERED: PLEASE ENTER HEIGHT AND WEIGHT MC SCH (11:00)
[2019-06-21 11:02] VITALS: BP 118/77
[2019-06-21] MEDS ORDERED: NICOTINE 14MG/24 HR PATCH.TD24 TD SCH (12:00)
[2019-06-21] MEDS: QUETIAPINE 25MG TABLET PO SCH ×2 (12:20→12:24)
[2019-06-21] MEDS: SERTRALINE 50MG TABLET PO SCH (12:20)
[2019-06-21 14:38] LABS: ANION GAP 7 mmol/L (5-15); CALCIUM 8.6 mg/dL (8.5-10.1); CHLORIDE 109 mmol/L (98-107)
[2019-06-21 15:00] LABS: CHOL/HDL RATIO 5.4; CHOLESTEROL, TOTAL 135 mg/dL (140-239); CREATININE 1.09 mg/dL (0.7-1.3); FREE T4 (FREE THYROXINE) 1.02 ng/dL (0.76-1.46); HDL CHOL % 19 % (26-37); HDL CHOLESTEROL (DIRECT) 25 mg/dL (40-60); LDL CHOLESTEROL,CALCULATED 51 mg/dL (54-169); TRIGLYCERIDES 297 mg/dL (50-200); VLDL CHOLESTEROL 59 mg/dL (0-25)
[2019-06-21] MEDS ORDERED: [UNRECOGNIZED DRUG - REMARK] PO SCH (15:31)
[2019-06-21] MEDS: NICOTINE 7 MG/24 HR PATCH.TD24 TD SCH (15:35)
[2019-06-21] MEDS: ACETAMINOPHEN 325 MG TABLET PO PRN (16:29)
[2019-06-21 19:39] VITALS: BP 135/82
[2019-06-21] MEDS: QUETIAPINE 100MG TABLET PO SCH (21:05)
[2019-06-21] MEDS: LACTULOSE 10 GM/15 ML UDC PO SCH (21:05)
[2019-06-22 06:24] LABS: BASOPHILS # (AUTO) 0.04 x10^3/uL (0-0.1); BASOPHILS % (AUTO) 1 % (0-1); EOSINOPHILS # (AUTO) 0.57 x10^3/uL (0-0.4); EOSINOPHILS % (AUTO) 7 % (1-7); LYMPHOCYTES # (AUTO) 1.43 x10^3/uL (1-3.4); LYMPHOCYTES % (AUTO) 17 % (22-44); MD NO; MEAN CORPUSCULAR HEMOGLOBIN 26.9 pg (27.5-34.5); MEAN CORPUSCULAR HGB CONC 31.6 g/dL (33.2-36.2); MEAN CORPUSCULAR VOLUME 85.2 fL (81-97); MEAN PLATELET VOLUME 8.3 fL (7.4-10.4); MONOCYTES # (AUTO) 0.52 x10^3/uL (0.2-0.8); MONOCYTES % (AUTO) 6 % (2-9); NEUTROPHILS # (AUTO) 5.79 x10^3/uL (1.8-6.8); NEUTROPHILS % (AUTO) 69 % (42-75); PLATELET COUNT 274 x10^3/uL (130-400); RED BLOOD COUNT 5.09 x10^6/uL (4.38-5.82); RED CELL DISTRIBUTION WIDTH 16.2 % (9.4-14.8)
[2019-06-22 06:36] LABS: CULTURE INDICATED? YES; MICROSCOPIC INDICATED
[2019-06-22 06:38] LABS: ANION GAP 7 mmol/L (5-15); CALCIUM 8.4 mg/dL (8.5-10.1); CHLORIDE 110 mmol/L (98-107); CREATININE 0.86 mg/dL (0.7-1.3); HEMOGLOBIN A1C 7.8 % (4.2-6.3)
[2019-06-22 07:18] VITALS: BP 106/71
[2019-06-22] MEDS: LACTULOSE 10 GM/15 ML UDC PO SCH ×3 (08:23→21:16)
[2019-06-22] MEDS: SERTRALINE 50MG TABLET PO SCH (08:23)
[2019-06-22] MEDS: LISINOPRIL 10 MG TABLET PO SCH (08:25)
[2019-06-22] MEDS ORDERED: IBUPROFEN 200 MG TABLET PO PRN (10:30)
[2019-06-22] MEDS: INSULIN LISPRO 100 UNITS/ML, PEN SQ-INSULIN SCH ×3 (12:13→21:16)
[2019-06-22] MEDS: IBUPROFEN 200 MG TABLET PO PRN ×2 (14:18→21:15)
[2019-06-22] MEDS ORDERED: LACTULOSE 10 GM/15 ML UDC PO PRN (14:30)
[2019-06-22] MEDS: NICOTINE 7 MG/24 HR PATCH.TD24 TD SCH (15:30)
[2019-06-22] MEDS: metFORMIN 500 MG TABLET PO SCH (17:08)
[2019-06-22 19:55] VITALS: BP 122/83
[2019-06-22] MEDS ORDERED: ENOXAPARIN 40 MG/0.4 ML SQ SCH (21:00)
[2019-06-22] MEDS: QUETIAPINE 100MG TABLET PO SCH (21:15)
[2019-06-22] MEDS: ENOXAPARIN 40 MG/0.4 ML SQ SCH (21:15)
[2019-06-23 06:28] LABS: ALANINE AMINOTRANSFERASE 16 U/L (12-78); ANION GAP 9 mmol/L (5-15); CALCIUM 8.3 mg/dL (8.5-10.1); CHLORIDE 110 mmol/L (98-107); CREATININE 0.88 mg/dL (0.7-1.3)
[2019-06-23 06:30] LABS: ALKALINE PHOSPHATASE 126 U/L (45-117); BILIRUBIN,TOTAL 0.3 mg/dL (0.2-1.0); CREATININE 0.85 mg/dL (0.7-1.3); TOTAL PROTEIN 6.4 g/dL (6.4-8.2)
[2019-06-23] MEDS: INSULIN LISPRO 100 UNITS/ML, PEN SQ-INSULIN SCH ×4 (07:00→21:21)
[2019-06-23 07:45] VITALS: BP 108/64
[2019-06-23] MEDS: LACTULOSE 10 GM/15 ML UDC PO SCH ×3 (08:24→21:04)
[2019-06-23] MEDS: LISINOPRIL 10 MG TABLET PO SCH (08:24)
[2019-06-23] MEDS: SERTRALINE 50MG TABLET PO SCH (08:24)
[2019-06-23] MEDS: metFORMIN 500 MG TABLET PO SCH ×2 (08:25→17:12)
[2019-06-23] MEDS: ACETAMINOPHEN 325 MG TABLET PO PRN (08:40)
[2019-06-23] MEDS: IBUPROFEN 200 MG TABLET PO PRN ×2 (11:37→21:22)
[2019-06-23] MEDS: AMOXICILLIN/CLAV 875-125MG TABLET PO SCH ×2 (12:20→21:03)
[2019-06-23] MEDS: NICOTINE 7 MG/24 HR PATCH.TD24 TD SCH (15:43)
[2019-06-23 19:33] VITALS: BP 150/97
[2019-06-23] MEDS: ENOXAPARIN 40 MG/0.4 ML SQ SCH (21:04)
[2019-06-23] MEDS: QUETIAPINE 100MG TABLET PO SCH (21:04)
[2019-06-24 06:25] LABS: BASOPHILS # (AUTO) 0.02 x10^3/uL (0-0.1); BASOPHILS % (AUTO) 0 % (0-1); EOSINOPHILS # (AUTO) 0.62 x10^3/uL (0-0.4); EOSINOPHILS % (AUTO) 8 % (1-7); LYMPHOCYTES # (AUTO) 1.42 x10^3/uL (1-3.4); LYMPHOCYTES % (AUTO) 18 % (22-44); MD NO; MEAN CORPUSCULAR HEMOGLOBIN 27.3 pg (27.5-34.5); MEAN CORPUSCULAR HGB CONC 32.5 g/dL (33.2-36.2); MEAN CORPUSCULAR VOLUME 84.2 fL (81-97); MEAN PLATELET VOLUME 8.1 fL (7.4-10.4); MONOCYTES # (AUTO) 0.52 x10^3/uL (0.2-0.8); MONOCYTES % (AUTO) 7 % (2-9); NEUTROPHILS # (AUTO) 5.34 x10^3/uL (1.8-6.8); NEUTROPHILS % (AUTO) 67 % (42-75); PLATELET COUNT 307 x10^3/uL (130-400); RED BLOOD COUNT 5.06 x10^6/uL (4.38-5.82); RED CELL DISTRIBUTION WIDTH 16.2 % (9.4-14.8)
[2019-06-24 06:40] LABS: ALANINE AMINOTRANSFERASE 19 U/L (12-78); ANION GAP 7 mmol/L (5-15); CALCIUM 8.8 mg/dL (8.5-10.1); CHLORIDE 110 mmol/L (98-107); CREATININE 0.79 mg/dL (0.7-1.3)
[2019-06-24 06:42] LABS: ALKALINE PHOSPHATASE 125 U/L (45-117); BILIRUBIN,TOTAL 0.2 mg/dL (0.2-1.0); TOTAL PROTEIN 6.5 g/dL (6.4-8.2)
[2019-06-24] MEDS ORDERED: AMPICILLIN/SULBACTAM 1,500 MG in SODIUM CHLORIDE 0.9% 50 ML IV SCH ×2 (07:30→18:30)
[2019-06-24 07:35] VITALS: BP 108/69
[2019-06-24] MEDS: metFORMIN 500 MG TABLET PO SCH ×2 (08:00→16:14)
[2019-06-24] MEDS: INSULIN LISPRO 100 UNITS/ML, PEN SQ-INSULIN SCH ×4 (08:00→20:27)
[2019-06-24] MEDS: IBUPROFEN 200 MG TABLET PO PRN (08:51)
[2019-06-24] MEDS: SERTRALINE 50MG TABLET PO SCH (09:00)
[2019-06-24] MEDS: LACTULOSE 10 GM/15 ML UDC PO SCH ×2 (09:00→20:26)
[2019-06-24] MEDS: LISINOPRIL 10 MG TABLET PO SCH (09:00)
[2019-06-24] MEDS: SODIUM CHLORIDE 0.9% 1,000 ML IV SCH (14:00)
[2019-06-24] MEDS: NICOTINE 7 MG/24 HR PATCH.TD24 TD SCH (16:11)
[2019-06-24] MEDS ORDERED: LIDOCAINE-MPF 1%, 5ML ONE ×2 (16:48)
[2019-06-24 19:38] VITALS: BP 148/90
[2019-06-24] MEDS: QUETIAPINE 100MG TABLET PO SCH (20:22)
[2019-06-25] MEDS: AMPICILLIN/SULBACTAM 1,500 MG in SODIUM CHLORIDE 0.9% 50 ML IV SCH ×3 (00:30→12:25)
[2019-06-25] MEDS: SODIUM CHLORIDE 0.9% 1,000 ML IV SCH (02:50)
[2019-06-25 05:06] LABS: BASOPHILS # (AUTO) 0.02 x10^3/uL (0-0.1); BASOPHILS % (AUTO) 0 % (0-1); EOSINOPHILS # (AUTO) 0.46 x10^3/uL (0-0.4); EOSINOPHILS % (AUTO) 7 % (1-7); LYMPHOCYTES # (AUTO) 1.63 x10^3/uL (1-3.4); LYMPHOCYTES % (AUTO) 24 % (22-44); MD NO; MEAN CORPUSCULAR HEMOGLOBIN 27.3 pg (27.5-34.5); MEAN CORPUSCULAR HGB CONC 32.5 g/dL (33.2-36.2); MEAN CORPUSCULAR VOLUME 83.9 fL (81-97); MEAN PLATELET VOLUME 7.9 fL (7.4-10.4); MONOCYTES # (AUTO) 0.49 x10^3/uL (0.2-0.8); MONOCYTES % (AUTO) 7 % (2-9); NEUTROPHILS # (AUTO) 4.22 x10^3/uL (1.8-6.8); NEUTROPHILS % (AUTO) 62 % (42-75); PLATELET COUNT 299 x10^3/uL (130-400); RED BLOOD COUNT 5.04 x10^6/uL (4.38-5.82); RED CELL DISTRIBUTION WIDTH 16.1 % (9.4-14.8)
[2019-06-25 05:17] LABS: ANION GAP 6 mmol/L (5-15); CALCIUM 8.2 mg/dL (8.5-10.1); CHLORIDE 109 mmol/L (98-107)
[2019-06-25 05:22] LABS: ALANINE AMINOTRANSFERASE 17 U/L (12-78); ALKALINE PHOSPHATASE 121 U/L (45-117); BILIRUBIN,TOTAL 0.2 mg/dL (0.2-1.0); CREATININE 0.81 mg/dL (0.7-1.3); TOTAL PROTEIN 6.3 g/dL (6.4-8.2)
[2019-06-25] MEDS: INSULIN LISPRO 100 UNITS/ML, PEN SQ-INSULIN SCH ×4 (06:24→20:05)
[2019-06-25 07:23] VITALS: BP 139/86
[2019-06-25] MEDS: SERTRALINE 50MG TABLET PO SCH (08:44)
[2019-06-25] MEDS: metFORMIN 500 MG TABLET PO SCH ×2 (08:44→16:04)
[2019-06-25] MEDS: LISINOPRIL 10 MG TABLET PO SCH (08:45)
[2019-06-25] MEDS: LACTULOSE 10 GM/15 ML UDC PO SCH ×4 (08:46→20:06)
[2019-06-25 08:58] VITALS: BP 134/74
[2019-06-25] MEDS ORDERED: ENOXAPARIN 40 MG/0.4 ML SQ SCH (13:30)
[2019-06-25] MEDS: NICOTINE 7 MG/24 HR PATCH.TD24 TD SCH (16:04)
[2019-06-25 19:30] VITALS: BP 137/92
[2019-06-25] MEDS: AMOXICILLIN/CLAV 875-125MG TABLET PO SCH (20:05)
[2019-06-25] MEDS: QUETIAPINE 100MG TABLET PO SCH (20:06)
[2019-06-26] MEDS: INSULIN LISPRO 100 UNITS/ML, PEN SQ-INSULIN SCH ×4 (06:17→21:00)
[2019-06-26 07:29] VITALS: BP 128/72
[2019-06-26] MEDS: LISINOPRIL 10 MG TABLET PO SCH (08:27)
[2019-06-26] MEDS: AMOXICILLIN/CLAV 875-125MG TABLET PO SCH ×2 (08:27→20:43)
[2019-06-26] MEDS: SERTRALINE 50MG TABLET PO SCH (08:27)
[2019-06-26] MEDS: metFORMIN 500 MG TABLET PO SCH ×2 (08:27→16:22)
[2019-06-26] MEDS: LACTULOSE 10 GM/15 ML UDC PO SCH ×5 (08:28→21:00)
[2019-06-26 10:32] LABS: BASOPHILS # (AUTO) 0.02 x10^3/uL (0-0.1); BASOPHILS % (AUTO) 0 % (0-1); EOSINOPHILS # (AUTO) 0.44 x10^3/uL (0-0.4); EOSINOPHILS % (AUTO) 6 % (1-7); LYMPHOCYTES # (AUTO) 1.43 x10^3/uL (1-3.4); LYMPHOCYTES % (AUTO) 18 % (22-44); MD NO; MEAN CORPUSCULAR VOLUME 84.3 fL (81-97); MEAN PLATELET VOLUME 7.7 fL (7.4-10.4); MONOCYTES # (AUTO) 0.43 x10^3/uL (0.2-0.8); MONOCYTES % (AUTO) 6 % (2-9); NEUTROPHILS # (AUTO) 5.45 x10^3/uL (1.8-6.8); NEUTROPHILS % (AUTO) 70 % (42-75); PLATELET COUNT 313 x10^3/uL (130-400); RED BLOOD COUNT 5.43 x10^6/uL (4.38-5.82)
[2019-06-26] MEDS: NICOTINE 7 MG/24 HR PATCH.TD24 TD SCH (15:12)
[2019-06-26] MEDS: IBUPROFEN 200 MG TABLET PO PRN (16:20)
[2019-06-26 19:24] VITALS: BP 117/82
[2019-06-26] MEDS: QUETIAPINE 100MG TABLET PO SCH (20:42)
[2019-06-27] MEDS: INSULIN LISPRO 100 UNITS/ML, PEN SQ-INSULIN SCH ×4 (06:44→20:36)
[2019-06-27 07:26] VITALS: BP 111/72
[2019-06-27] MEDS: LISINOPRIL 10 MG TABLET PO SCH (08:32)
[2019-06-27] MEDS: SERTRALINE 50MG TABLET PO SCH (08:32)
[2019-06-27] MEDS: metFORMIN 500 MG TABLET PO SCH ×2 (08:32→17:14)
[2019-06-27] MEDS: AMOXICILLIN/CLAV 875-125MG TABLET PO SCH ×2 (08:32→20:33)
[2019-06-27] MEDS: LACTULOSE 10 GM/15 ML UDC PO SCH ×3 (08:33→20:34)
[2019-06-27] MEDS: IBUPROFEN 200 MG TABLET PO PRN (11:50)
[2019-06-27] MEDS: NICOTINE 7 MG/24 HR PATCH.TD24 TD SCH (15:24)
[2019-06-27 19:44] VITALS: BP 106/80
[2019-06-27] MEDS: QUETIAPINE 100MG TABLET PO SCH (20:34)
[2019-06-28 07:11] VITALS: BP 107/76
[2019-06-28] MEDS: INSULIN LISPRO 100 UNITS/ML, PEN SQ-INSULIN SCH ×4 (07:43→20:23)
[2019-06-28] MEDS: metFORMIN 500 MG TABLET PO SCH ×2 (08:18→17:28)
[2019-06-28] MEDS: SERTRALINE 50MG TABLET PO SCH (08:18)
[2019-06-28] MEDS: AMOXICILLIN/CLAV 875-125MG TABLET PO SCH ×2 (08:18→20:21)
[2019-06-28] MEDS: LISINOPRIL 10 MG TABLET PO SCH (08:18)
[2019-06-28] MEDS: LACTULOSE 10 GM/15 ML UDC PO SCH ×2 (08:44→20:22)
[2019-06-28] MEDS: IBUPROFEN 200 MG TABLET PO PRN (09:03)
[2019-06-28] MEDS: NICOTINE 7 MG/24 HR PATCH.TD24 TD SCH (15:05)
[2019-06-28 19:46] VITALS: BP 124/81
[2019-06-28] MEDS: QUETIAPINE 100MG TABLET PO SCH (20:21)
[2019-06-29] MEDS: INSULIN LISPRO 100 UNITS/ML, PEN SQ-INSULIN SCH ×2 (07:32→11:31)
[2019-06-29 08:00] VITALS: BP 100/64
[2019-06-29] MEDS: LISINOPRIL 10 MG TABLET PO SCH (08:15)
[2019-06-29] MEDS: AMOXICILLIN/CLAV 875-125MG TABLET PO SCH ×2 (08:15→20:22)
[2019-06-29] MEDS: metFORMIN 500 MG TABLET PO SCH ×2 (08:15→17:17)
[2019-06-29] MEDS: SERTRALINE 50MG TABLET PO SCH (08:15)
[2019-06-29] MEDS: IBUPROFEN 200 MG TABLET PO PRN ×2 (08:15→18:08)
[2019-06-29] MEDS: LACTULOSE 10 GM/15 ML UDC PO SCH ×2 (08:15→20:24)
[2019-06-29] MEDS: NICOTINE 7 MG/24 HR PATCH.TD24 TD SCH (15:15)
[2019-06-29 19:48] VITALS: BP 117/84
[2019-06-29] MEDS: QUETIAPINE 100MG TABLET PO SCH (20:22)
[2019-06-30 07:30] VITALS: BP 111/75
[2019-06-30] MEDS: IBUPROFEN 200 MG TABLET PO PRN ×2 (08:44→17:20)
[2019-06-30] MEDS: metFORMIN 500 MG TABLET PO SCH ×2 (08:44→17:20)
[2019-06-30] MEDS: LACTULOSE 10 GM/15 ML UDC PO SCH ×2 (08:45→20:26)
[2019-06-30] MEDS: SERTRALINE 50MG TABLET PO SCH (08:45)
[2019-06-30] MEDS: LISINOPRIL 10 MG TABLET PO SCH (08:45)
[2019-06-30] MEDS: AMOXICILLIN/CLAV 875-125MG TABLET PO SCH ×2 (08:45→20:26)
[2019-06-30] MEDS ORDERED: METF500T17 PO (16:30)
[2019-06-30] MEDS ORDERED: NICO-485 TD (16:30)
[2019-06-30] MEDS ORDERED: AMOX1TAB12 PO (16:30)
[2019-06-30] MEDS ORDERED: QUET100T PO (16:30)
[2019-06-30] MEDS ORDERED: SERT50TA28 PO (16:30)
[2019-06-30] MEDS ORDERED: LISI-167 PO (16:30)
[2019-06-30] MEDS: NICOTINE 7 MG/24 HR PATCH.TD24 TD SCH (16:56)
[2019-06-30 20:06] VITALS: BP 128/83
[2019-06-30] MEDS: QUETIAPINE 100MG TABLET PO SCH (20:25)
[2019-07-01 08:00] VITALS: BP 143/89
[2019-07-01] MEDS: LISINOPRIL 10 MG TABLET PO SCH (08:38)
[2019-07-01] MEDS: SERTRALINE 50MG TABLET PO SCH (08:38)
[2019-07-01] MEDS: AMOXICILLIN/CLAV 875-125MG TABLET PO SCH (08:38)
[2019-07-01] MEDS: metFORMIN 500 MG TABLET PO SCH (08:38)
[2019-07-01] MEDS: LACTULOSE 10 GM/15 ML UDC PO SCH (08:38)
== END 2019-07-01 10:15 | disposition home or self-care (01) | DRG 885 ==
LOC: 3E 10:47
PROVIDERS: ADMIT Psychiatry & Neurology Psychosomatic Medicine; ATTEND Psychiatry & Neurology Psychosomatic Medicine
PROC: 0X953ZZ Drainage of Left Axilla, Percutaneous Approach (ICD-10-PCS; principal; 2019-06-25)
DX: F20.0 Paranoid schizophrenia (principal); F33.2 Major depressive disorder, recurrent severe without psychotic features; R45.851 Suicidal ideations; L02.412 Cutaneous abscess of left axilla; J98.11 Atelectasis; L03.114 Cellulitis of left upper limb; E11.9 Type 2 diabetes mellitus without complications; F17.210 Nicotine dependence, cigarettes, uncomplicated; E66.9 Obesity, unspecified; I10 Essential (primary) hypertension; G47.00 Insomnia, unspecified; Z88.8 Allergy status to other drugs, medicaments and biological substances; Z71.6 Tobacco abuse counseling; Z79.899 Other long term (current) drug therapy; Z91.14 Patient's other noncompliance with medication regimen; Z68.36 Body mass index [BMI] 36.0-36.9, adult
CPT/HCPCS: 36415; 71045; 75989; 80048; 80053; 80061; 81001; 82140; 82565; 82607; 82962; 83036; 84439; 84443; 85025; 86592; 87070; 87077; 87086; 87205; 93005; J1650; Q0162; J0295; J1815; J7030

== ENCOUNTER 2019-07-05 05:07 | Emergency (ER) | payer MEDICARE, MEDICAID ==
[~2019-07-05] VITALS: Ht 175.3 cm; Wt 113.9 kg
[2019-07-05 08:11] VITALS: BP 114/82
== END 2019-07-05 08:24 | disposition home or self-care (01) ==
LOC: ED 07:39
DX: R13.12 Dysphagia, oropharyngeal phase (principal); F41.1 Generalized anxiety disorder; E11.9 Type 2 diabetes mellitus without complications; I10 Essential (primary) hypertension; F20.9 Schizophrenia, unspecified; F32.9 Major depressive disorder, single episode, unspecified
CPT/HCPCS: 93005; 96372; 99283; J1200; 96367

== ENCOUNTER 2019-07-17 23:13 | Emergency (ER) | payer MEDICARE, MEDICAID ==
[~2019-07-17] VITALS: Ht 175.3 cm; Wt 114.4 kg
[2019-07-17 23:15] VITALS: BP 121/88
== END 2019-07-18 00:06 | disposition home or self-care (01) ==
LOC: ED 07-18
DX: F20.9 Schizophrenia, unspecified (principal); Z76.0 Encounter for issue of repeat prescription; F41.1 Generalized anxiety disorder; E11.9 Type 2 diabetes mellitus without complications; I10 Essential (primary) hypertension
CPT/HCPCS: 99283

== ENCOUNTER 2019-08-02 07:19 | Emergency (ER) | payer MEDICARE, MEDICAID ==
[~2019-08-02] VITALS: Ht 175.3 cm; Wt 113.8 kg
[~2019-08-02 07:19] MED LIST changes: +AMOX1TAB12 PO; +METF500T17 PO; +NICO-485 TD; +SERT50TA28 PO
--- NOTE | 2019-08-02 07:28 | NUR ---
PT TO ROOM AT THIS TIME.
--- NOTE | 2019-08-02 07:29 | NUR ---
54 Y/O MALE PRESENTS T O ED WITH C/O PT STATES "YOU'RE MOVING ALL AROUND. EVERYTHING IS JUST SPINNING RIGHT NOW. MY RIGHT ARM HURTS FROM A FALL BACK IN OCTOBER." NO ACUTE DISTRESS NOTED. EDMD BEDSIDE. NO C/O N/V/D, TRAUMA, SYNCOPE, CP.
[2019-08-02] MEDS ORDERED: DEXAMETHASONE 4 MG TABLET PO ONE (07:30)
[2019-08-02] MEDS ORDERED: MECLIZINE CHEWABLE 25 MG TAB PO ONE (07:30)
[2019-08-02] MEDS ORDERED: MECLIZINE CHEWABLE 25 MG TAB ONE (07:41)
[2019-08-02] MEDS ORDERED: DEXAMETHASONE 4 MG TABLET ONE (07:41)
--- NOTE | 2019-08-02 08:27 | NUR ---
PT RESTING ON GURNEY. NO ACUTE DISTRESS NOTED. AWAITING IMAGING RESULTS.
[2019-08-02] MEDS ORDERED: CARBAMIDE PEROXIDE EAR DROPS 6.5%, 15ML ONE (09:22)
[2019-08-02] MEDS ORDERED: CARBAMIDE PEROXIDE EAR DROPS 6.5%, 15ML EACH EAR ONE (09:30)
--- NOTE | 2019-08-02 09:59 | NUR ---
BEDSIDE REPORT TO SASHA WHITE.
--- NOTE | 2019-08-02 10:23 | NUR ---
BECKY Harrington irriagated left ear. Patient reports relief.
[2019-08-02 10:30] VITALS: BP 116/70
--- NOTE | 2019-08-02 10:31 | NUR ---
Patient/Caregiver given discharge instructions and they have confirmed that they understand the instructions. Patient ambulatory with steady gait.
== END 2019-08-02 10:33 | disposition home or self-care (01) ==
LOC: ED 10:05
DX: R42 Dizziness and giddiness (principal); H61.23 Impacted cerumen, bilateral; E11.65 Type 2 diabetes mellitus with hyperglycemia; I10 Essential (primary) hypertension; F20.9 Schizophrenia, unspecified; F32.9 Major depressive disorder, single episode, unspecified
CPT/HCPCS: 69209; 70450; 99284

== ENCOUNTER 2020-03-30 21:37 | Emergency (ER) | payer MEDICARE, MEDICAID ==
[~2020-03-30] VITALS: Ht 175.3 cm; Wt 120.0 kg
[2020-03-30] MEDS ORDERED: SODIUM CHLORIDE FLUSH 10ML SYR IVF ONE (22:30)
--- NOTE | 2020-03-30 22:42 | NUR ---
PT STATES HE HAS HAD SOB THAT HAS BEEN INCREASINGLY WORSE OVER THE PAST SEVERAL DAYS. PT WITH INCREASED WORK OF BREATHING. PT WAS 80% ON RA WHEN HE ARRIVED. 4 L NC APPLIED AND O2 RAISED TO 98%. PT ATTACHED TO ALL MONITORS. PT WORKING TO BREATH AND ABLE TO SPEAK ONLY IN SHORT SENTENCES.
[2020-03-30 23:13] LABS: BASOPHILS # (AUTO) 0.04 x10^3/uL (0-0.1); BASOPHILS % (AUTO) 0 % (0-1); EOSINOPHILS # (AUTO) 0.52 x10^3/uL (0-0.4); EOSINOPHILS % (AUTO) 5 % (1-7); LYMPHOCYTES % (AUTO) 14 % (22-44); MD NO; MEAN CORPUSCULAR HEMOGLOBIN 26.1 pg (27.5-34.5); MEAN CORPUSCULAR HGB CONC 31.8 g/dL (33.2-36.2); MEAN CORPUSCULAR VOLUME 82.1 fL (81-97); MEAN PLATELET VOLUME 8.5 fL (7.4-10.4); MONOCYTES # (AUTO) 0.82 x10^3/uL (0.2-0.8); MONOCYTES % (AUTO) 7 % (2-9); NEUTROPHILS # (AUTO) 8.49 x10^3/uL (1.8-6.8); NEUTROPHILS % (AUTO) 74 % (42-75); PLATELET COUNT 306 x10^3/uL (130-400); RED CELL DISTRIBUTION WIDTH 17.6 % (9.4-14.8)
[2020-03-30 23:25] LABS: ALANINE AMINOTRANSFERASE 22 U/L (12-78); ALBUMIN 3.2 g/dL (3.4-5.0); ANION GAP 3 mmol/L (5-15); CALCIUM 8.5 mg/dL (8.5-10.1); CHLORIDE 106 mmol/L (98-107); CREATININE 0.88 mg/dL (0.7-1.3)
[2020-03-30 23:30] LABS: ALKALINE PHOSPHATASE 130 U/L (45-117); BILIRUBIN,TOTAL 0.2 mg/dL (0.2-1.0); TOTAL PROTEIN 6.5 g/dL (6.4-8.2); TROPONIN I < 0.015 ng/mL (0.000-0.045)
[2020-03-31] MEDS ORDERED: ALBUTEROL/IPRATROPIUM 2.5MG/0.5MG, 3 ML NPPB ONE
--- NOTE | 2020-03-31 00:06 | NUR ---
TASK RN: RN ANSWERED CALL LIGHT, PT SITTING UP IN [facility]. PT REQUESTING GUIDANCE ON USE OF INHALER WHICH PT STATES IS EMPTY. RN EXPLAINED USE AND PROVIDED SPACER. SPACER EDUCATION PROVIDED AND PT DEMONSTRATES UNDERSTANDING. PT REPORTS "I DON'T LIKE USING THESE". ERP RECOMMENDATED POC IS ADMIT, PT REFUSING D/T ISSUES REGARDING HOTEL ROOM. PT REMAINS ON 4L BY NC, SPO2 >90%. RR 18, PT SPEAKING IN FULL SENTENCES. PWD.
[2020-03-31] MEDS ORDERED: ALBUTEROL/IPRATROPIUM 2.5MG/0.5MG, 3 ML ONE (00:12)
[2020-03-31 00:20] VITALS: BP 149/90
--- NOTE | 2020-03-31 00:25 | NUR ---
PT WITH BREATHING TREATMENT AT THIS TIME.
--- NOTE | 2020-03-31 00:37 | NUR ---
AMA PAPERWORK SIGNED BY PATIENT AND WITNESSED BY ME. PAPERWORK ADDED TO PATIENT PAPER CHART.
--- NOTE | 2020-03-31 01:15 | NUR ---
PT DISCHARGED WITH A TAXI CAB VOUCHER
== END 2020-03-31 01:17 | disposition left against medical advice (07) ==
LOC: ED 22:50
DX: J20.8 Acute bronchitis due to other specified organisms (principal); R09.02 Hypoxemia; R06.00 Dyspnea, unspecified; R00.0 Tachycardia, unspecified; I10 Essential (primary) hypertension; E11.9 Type 2 diabetes mellitus without complications; F17.210 Nicotine dependence, cigarettes, uncomplicated
CPT/HCPCS: 36415; 71045; 80053; 83605; 83615; 83880; 84145; 84484; 85025; 87040; 93005; 99285

== ENCOUNTER 2020-05-10 12:04 | Emergency (ER) | payer MEDICARE, MEDICAID ==
[~2020-05-10] VITALS: Ht 175.3 cm; Wt 120.0 kg
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
[2020-05-10 13:16] LABS: BASOPHILS # (AUTO) 0.04 x10^3/uL (0-0.1); BASOPHILS % (AUTO) 1 % (0-1); EOSINOPHILS # (AUTO) 0.39 x10^3/uL (0-0.4); EOSINOPHILS % (AUTO) 4 % (1-7); LYMPHOCYTES # (AUTO) 1.22 x10^3/uL (1-3.4); LYMPHOCYTES % (AUTO) 13 % (22-44); MD NO; MEAN CORPUSCULAR HEMOGLOBIN 26.8 pg (27.5-34.5); MEAN CORPUSCULAR HGB CONC 32.2 g/dL (33.2-36.2); MEAN CORPUSCULAR VOLUME 83.2 fL (81-97); MEAN PLATELET VOLUME 7.9 fL (7.4-10.4); MONOCYTES # (AUTO) 0.58 x10^3/uL (0.2-0.8); MONOCYTES % (AUTO) 6 % (2-9); NEUTROPHILS % (AUTO) 76 % (42-75); PLATELET COUNT 353 x10^3/uL (130-400); RED CELL DISTRIBUTION WIDTH 19.2 % (9.4-14.8)
[2020-05-10 13:20] LABS: ALANINE AMINOTRANSFERASE 21 U/L (12-78); ALBUMIN 3.2 g/dL (3.4-5.0); ANION GAP 5 mmol/L (5-15); CALCIUM 8.5 mg/dL (8.5-10.1); CHLORIDE 109 mmol/L (98-107); CREATININE 0.92 mg/dL (0.7-1.3); SALICYLATE LEVEL 2.1 mg/dL (2.8-20.0)
[2020-05-10 13:22] LABS: ALKALINE PHOSPHATASE 137 U/L (45-117); BILIRUBIN,TOTAL 0.3 mg/dL (0.2-1.0); TOTAL PROTEIN 6.3 g/dL (6.4-8.2)
--- NOTE | 2020-05-10 13:31 | NUR ---
PT LEGAL HOLD PER BLANCHE TRAN, TRIM MASTER OPERATOR MADE AWARE, SITTER IN VIEW OF PT. MEAL TRAY ORDERED.
--- NOTE | 2020-05-10 14:28 | NUR ---
THROUGHPUT RN: SPOKE W/ AVA IN [facility] WHO STATES SHE WILL LOOK INTO PATIENT'S CHART.
[2020-05-10] MEDS: PALIPERIDONE 3 MG TAB.ER.24 PO SCH (14:35)
--- NOTE | 2020-05-10 14:45 | NUR ---
THROUGHPUT RN: SPOKE W/ AVA FROM [facility] WHO DECLINES PT SECONDARY TO BEING OUT OF MEDICARE DAYS.
--- NOTE | 2020-05-10 15:06 | NUR ---
PT MEDICATED PER JAN, MEAL TRAY ORDERED FOR PT.
[2020-05-10 15:52] LABS: AMPHETAMINE SCREEN, URINE Negative (Negative); BARBITURATE SCREEN, URINE Negative (Negative); BENZODIAZEPINE SCREEN, URINE Negative (Negative); CANNABINOID SCREEN, URINE Negative (Negative); COCAINE SCREEN, URINE Negative (Negative); METHADONE SCREEN, URINE Negative (Negative); OPIATE SCREEN, URINE Negative (Negative)
--- NOTE | 2020-05-10 16:05 | NUR ---
THROUGHPUT RN: PACKET FAXED TO [facility], [facility], [facility] AND [facility].
--- NOTE | 2020-05-10 18:56 | NUR ---
ASSUMED CARE OF PT AT THIS TIME.
[2020-05-10] MEDS ORDERED: GABAPENTIN 300 MG CAPSULE PO SCH (21:00)
--- NOTE | 2020-05-10 22:52 | NUR ---
PT MOVED TO HOSPITAL INPATIENT BED. PT STATES HE REMAINS SUICIDAL. REPORTS HE HAS A PLAN IN PLACE TO USE A KNIFE OR GUN TO TAKE HIS LIFE. PT CALM AND COOPERATIVE WITH STAFF.
--- NOTE | 2020-05-11 00:09 | NUR ---
PT SLEEPING AT THIS TIME. SITTER OUTSIDE ROOM.
--- NOTE | 2020-05-11 04:14 | NUR ---
PT SLEEPING WITH SITTER OUTSIDE ROOM.
--- NOTE | 2020-05-11 07:04 | NUR ---
REPORT GIVEN TO GREG BAEZ
--- NOTE | 2020-05-11 07:08 | NUR ---
REPORT RECEIVED FROM TOMASZ BAEZ. PT IS SLEEPING ON [facility] W/ SITTER OUTSIDE ROOM. GARAGE DOORS DOWN FOR SAFEY. CHEST RISE AND FALL OBSERVED.
--- NOTE | 2020-05-11 08:00 | NUR ---
PT SLEEPING ON HOSPITAL BED W/ SITTER OUTSIDE ROOM AND GARAGE DOORS DOWN FOR SAFETY. CHEST RISE AND FALL OBSERVED.
--- NOTE | 2020-05-11 08:30 | NUR ---
BREAKFAST TRAY DELIVERED.
--- NOTE | 2020-05-11 09:00 | NUR ---
VS OBTAINED. PT 82% RA. PLACED ON 4L NC W/ DESIRED EFFECT. OTHER VS WDL. PT DENIES SOB, CP, COUGH. WILL NOTIFY ED PROVIDER.
--- NOTE | 2020-05-11 09:07 | NUR ---
MED ANGELA FROM PHARMACY.
--- NOTE | 2020-05-11 09:15 | NUR ---
RAD IN ROOM.
[2020-05-11] MEDS: PALIPERIDONE 3 MG TAB.ER.24 PO SCH (09:36)
--- NOTE | 2020-05-11 09:38 | NUR ---
PT MEDICATED PER EMAR. LAB IN ROOM.
[2020-05-11 10:09] LABS: TROPONIN I < 0.015 ng/mL (0.000-0.045)
--- NOTE | 2020-05-11 10:21 | NUR ---
PT EDUCATED ON NEED FOR COVID SWAB. AGREED TO COLLECTION OF SAMPLE. COVID SWAB OBTAINED AND WALKED TO LAB. ISOLATION CART PLACED OUTSIDE OF ROOM.
[2020-05-11] MEDS ORDERED: CEFDINIR 300 MG CAPSULE ONE (10:46)
[2020-05-11] MEDS ORDERED: AZITHROMYCIN 250 MG TABLET ONE (10:47)
--- NOTE | 2020-05-11 10:55 | NUR ---
PT STILL 87% RA, OTHER VS WDL. PT MEDICATED PER EMAR. RESTING ON HOSPITAL BED W/ SITTER OUTSIDE ROOM FOR SAFETY.
[2020-05-11] MEDS ORDERED: CEFDINIR 300 MG CAPSULE PO ONE (11:00)
[2020-05-11] MEDS ORDERED: AZITHROMYCIN 500 MG TABLET PO ONE (11:00)
[2020-05-11] MEDS ORDERED: ALBUTEROL HFA 90 MCG/SPRAY INH ONE (11:00)
--- NOTE | 2020-05-11 12:00 | NUR ---
JUANJOSE TRAN IN ROOM.
[2020-05-11 12:29] VITALS: BP 126/87
--- NOTE | 2020-05-11 12:46 | NUR ---
Patient given discharge instructions and they have confirmed that they understand the instructions. Patient ambulatory with steady gait. Provided meal tray to go. SW provided pt w/ schafer hound bus ticket.
== END 2020-05-11 12:48 | disposition home or self-care (01) ==
LOC: ED 14:14
DX: R45.851 Suicidal ideations (principal); Z20.828 Contact with and (suspected) exposure to other viral communicable diseases; J18.9 Pneumonia, unspecified organism; R09.02 Hypoxemia; F32.9 Major depressive disorder, single episode, unspecified; R94.31 Abnormal electrocardiogram [ECG] [EKG]; I10 Essential (primary) hypertension; E11.9 Type 2 diabetes mellitus without complications; J45.909 Unspecified asthma, uncomplicated
CPT/HCPCS: 36415; 71045; 80053; 80307; 83880; 84484; 85025; 93005; 99285; U0001

== ENCOUNTER 2020-10-14 02:06 | Emergency (ER) | payer MEDICAID, MEDICARE ==
[~2020-10-14] VITALS: Ht 175.3 cm; Wt 110.0 kg
[2020-10-14 02:11] VITALS: BP 130/88
[2020-10-14] MEDS ORDERED: LORazepam 1MG TABLET ONE (02:29)
[2020-10-14] MEDS ORDERED: LORazepam 1MG TABLET PO ONE (02:30)
== END 2020-10-14 03:21 | disposition home or self-care (01) ==
LOC: ED 02:54
DX: F20.0 Paranoid schizophrenia (principal); F51.04 Psychophysiologic insomnia; I10 Essential (primary) hypertension
CPT/HCPCS: 99283

== ENCOUNTER 2021-07-04 00:14 | Emergency (ER) | payer BC, MEDICARE ==
[~2021-07-04] VITALS: Ht 172.7 cm; Wt 117.3 kg
[~2021-07-04 00:14] MED LIST changes: +OLAN10TA69 PO; -OLAN10TA9 PO
[2021-07-04 00:47] LABS: BASOPHILS % (AUTO) 1 % (0-1); EOSINOPHILS % (AUTO) 3 % (1-7); LYMPHOCYTES % (AUTO) 19 % (22-44); MEAN CORPUSCULAR HEMOGLOBIN 28.2 pg (27.5-34.5); MEAN CORPUSCULAR HGB CONC 33.4 g/dL (33.2-36.2); MONOCYTES % (AUTO) 7 % (2-9); NEUTROPHILS % (AUTO) 70 % (42-75); PLATELET COUNT 329 x10^3/uL (130-400); RED BLOOD COUNT 5.31 x10^6/uL (4.38-5.82); RED CELL DISTRIBUTION WIDTH 15.3 % (9.4-14.8)
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
[2021-07-04 01:16] LABS: CHLORIDE 102 mmol/L (98-107)
--- NOTE | 2021-07-04 01:21 | NUR ---
REPORT GIVEN TO SASHA BASHIR
[2021-07-04 01:24] LABS: AMPHETAMINE SCREEN, URINE Negative (Negative); BARBITURATE SCREEN, URINE Negative (Negative); BENZODIAZEPINE SCREEN, URINE Negative (Negative); CANNABINOID SCREEN, URINE Negative (Negative); COCAINE SCREEN, URINE Negative (Negative); METHADONE SCREEN, URINE Negative (Negative); OPIATE SCREEN, URINE Negative (Negative)
[2021-07-04 01:32] LABS: ALANINE AMINOTRANSFERASE 23 U/L (12-78); ALBUMIN 3.5 g/dL (3.4-5.0); ALKALINE PHOSPHATASE 149 U/L (45-117); ANION GAP 6 mmol/L (5-15); BILIRUBIN,TOTAL 0.3 mg/dL (0.2-1.0); CALCIUM 8.5 mg/dL (8.5-10.1); CREATININE 0.94 mg/dL (0.7-1.3); SALICYLATE LEVEL 2.7 mg/dL (2.8-20.0); TOTAL PROTEIN 7.1 g/dL (6.4-8.2)
--- NOTE | 2021-07-04 02:30 | NUR ---
PT RESTING ON GURNEY RESP EVEN AND UNLABORED NADN, VSS NO NEEDS AT THIS TIME, SITTER IN SIGHT FOR SAFETY
[2021-07-04 02:59] VITALS: BP 125/71
--- NOTE | 2021-07-04 03:35 | NUR ---
PT RESTING ON GURNEY RESP EVEN AND UNLABORED NADN, VSS NO NEEDS AT THIS TIME, SITTER IN SIGHT FOR SAFETY, TELEPSYCH ROBOT IN ROOM AWAITING CONSULT
--- NOTE | 2021-07-04 04:52 | NUR ---
PT AMBULATING TO RESTROOM, TELLO, SITTER IN SIGHT
--- NOTE | 2021-07-04 06:36 | NUR ---
PT TO DC BACK TO LONG TERM. PT OFFERED TAXI VOUCHER HOWEVER PT STS HE WANTS TO WALK.
== END 2021-07-04 06:38 | disposition home or self-care (01) ==
LOC: ED 02:45
DX: F23 Brief psychotic disorder (principal); R45.851 Suicidal ideations; F17.210 Nicotine dependence, cigarettes, uncomplicated; Z72.9 Problem related to lifestyle, unspecified; I10 Essential (primary) hypertension; E11.9 Type 2 diabetes mellitus without complications; Z91.19 Patient's noncompliance with other medical treatment and regimen
CPT/HCPCS: 36415; 80053; 80299; 80307; 80320; 80329; 84443; 85025; 99284; 99406; G0480

== ENCOUNTER 2021-07-10 22:36 | Emergency (ER) | payer BC ==
[~2021-07-10] VITALS: Ht 172.7 cm; Wt 114.0 kg
[2021-07-10 22:45] VITALS: BP 122/86
[2021-07-10] MEDS ORDERED: OLANZAPINE 10 MG TABLET ONE (23:34)
[2021-07-11] MEDS ORDERED: OLANZAPINE 10 MG TABLET PO SCH ×2 (09:00)
== END 2021-07-10 23:46 | disposition home or self-care (01) ==
LOC: ED 23:40
DX: F20.9 Schizophrenia, unspecified (principal); Z76.0 Encounter for issue of repeat prescription; F17.210 Nicotine dependence, cigarettes, uncomplicated; Z72.9 Problem related to lifestyle, unspecified; E11.65 Type 2 diabetes mellitus with hyperglycemia; I10 Essential (primary) hypertension
CPT/HCPCS: 99283; 99406

== ENCOUNTER 2021-07-13 20:30 | Emergency (ER) | payer BC ==
[~2021-07-13] VITALS: Ht 172.7 cm; Wt 117.3 kg
[2021-07-13 21:04] VITALS: BP 164/100
--- NOTE | 2021-07-13 21:25 | NUR ---
PIT, PT DISCHARGED FROM TRIAGE
== END 2021-07-13 21:46 ==
LOC: ED 21:00
DX: L03.031 Cellulitis of right toe (principal); B35.3 Tinea pedis; Z59.0 Homelessness; E11.65 Type 2 diabetes mellitus with hyperglycemia; I10 Essential (primary) hypertension
CPT/HCPCS: 99283

== ENCOUNTER 2021-07-15 20:18 | Emergency (ER) | payer BC ==
[~2021-07-15] VITALS: Ht 172.7 cm; Wt 116.0 kg
--- NOTE | 2021-07-15 20:39 | NUR ---
PT BIB EMS FOR SI. PT NOT ON L2K AT THIS TIME. PT REPORTS "IM HEARING VOICES TELLING ME TO JUMP IN FRONT OF A CAR, OR JUMP OFF A BRIDGE, LAY IN FRONT OF A TRAIN". PT SAYS HE HASNT BEEN TAKING HIS "MEDS". PT PROVIDED UA. BELONGINGS PLACED IN PT BELONGING BAG AND LOCKED IN SECURITY LOCKER. PT RESTING IN GURNEY IN SECURED ROOM.
[2021-07-15 21:28] LABS: BASOPHILS % (AUTO) 1 % (0-1); EOSINOPHILS % (AUTO) 4 % (1-7); LYMPHOCYTES % (AUTO) 19 % (22-44); MEAN CORPUSCULAR HEMOGLOBIN 27.4 pg (27.5-34.5); MEAN CORPUSCULAR HGB CONC 32.8 g/dL (33.2-36.2); MEAN PLATELET VOLUME 8.1 fL (7.4-10.4); MONOCYTES % (AUTO) 7 % (2-9); NEUTROPHILS % (AUTO) 69 % (42-75); PLATELET COUNT 279 x10^3/uL (130-400); RED BLOOD COUNT 5.21 x10^6/uL (4.38-5.82); RED CELL DISTRIBUTION WIDTH 15.1 % (9.4-14.8)
[2021-07-15 21:39] LABS: ALBUMIN 2.9 g/dL (3.4-5.0); ANION GAP 4 mmol/L (5-15); CALCIUM 8.7 mg/dL (8.5-10.1); CHLORIDE 106 mmol/L (98-107); CREATININE 0.87 mg/dL (0.7-1.3); SALICYLATE LEVEL 2.3 mg/dL (2.8-20.0)
[2021-07-15 21:59] LABS: AMPHETAMINE SCREEN, URINE Negative (Negative); BARBITURATE SCREEN, URINE Negative (Negative); BENZODIAZEPINE SCREEN, URINE Negative (Negative); CANNABINOID SCREEN, URINE Negative (Negative); COCAINE SCREEN, URINE Negative (Negative); METHADONE SCREEN, URINE Negative (Negative); OPIATE SCREEN, URINE Negative (Negative)
--- NOTE | 2021-07-15 23:00 | NUR ---
Pt resting at this time. Room secured. Pt denies needs.
--- NOTE | 2021-07-16 01:06 | NUR ---
BREAK RN: PT RESTING IN ROOM. NO ACUTE DISTRESS NOTED. WILL CONTINUE TO MONITOR WHILE PRIMARY RN IS ON BREAK.
--- NOTE | 2021-07-16 01:28 | NUR ---
REPORT GIVEN TO SASHA LUO
--- NOTE | 2021-07-16 02:25 | NUR ---
Pt resting comfortably at this time, sitter at bedside. Room secured. Pt denies needs.
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
--- NOTE | 2021-07-16 02:55 | NUR ---
Pt provided w/ extra pillows, blankets, crackers, pudding, juice. Tolerating PO well. Denies further needs at this time.
--- NOTE | 2021-07-16 03:30 | NUR ---
Pt resting at this time. Calm and cooperative. Denies needs. Room secure, garage doors down. Sitter in clear line of sight of patient.
--- NOTE | 2021-07-16 04:30 | NUR ---
Pt sleeping comfortably at this time, denies needs. Sitter in clear line of sight of patient. Room secured. garage doors down.
--- NOTE | 2021-07-16 05:30 | NUR ---
Pt sleeping comfortably at this time, denies needs. Sitter in clear line of sight of patient. Room secured. garage doors down.
--- NOTE | 2021-07-16 06:29 | NUR ---
Pt sleeping comfortably at this time, denies needs. Sitter in clear line of sight of patient. Room secured. garage doors down.
--- NOTE | 2021-07-16 06:57 | NUR ---
Report given to SASHA Willis no further questions at this time.
--- NOTE | 2021-07-16 06:58 | NUR ---
REPORT FROM SASHA LUO. [facility].
--- NOTE | 2021-07-16 10:43 | NUR ---
PT RESTING IN [place] [place] AT THIS TIME, MEAL TRAY ORDERED FOR PT, PT STATES NO NEEDS AT THIS TIME.
[2021-07-16 14:15] VITALS: BP 121/86
== END 2021-07-16 15:07 | disposition home or self-care (01) ==
LOC: ED 21:08
DX: F20.9 Schizophrenia, unspecified (principal); I10 Essential (primary) hypertension; E11.9 Type 2 diabetes mellitus without complications; J45.909 Unspecified asthma, uncomplicated; Z87.891 Personal history of nicotine dependence
CPT/HCPCS: 36415; 80048; 80299; 80307; 80320; 80329; 82040; 85025; 99284; G0480

== ENCOUNTER 2021-07-24 06:37 | Emergency (ER) | payer BC ==
[~2021-07-24] VITALS: Ht 172.7 cm; Wt 112.4 kg
--- NOTE | 2021-07-24 06:48 | NUR ---
REPORT GIVEN TO SASHA SCOTT
--- NOTE | 2021-07-24 06:49 | NUR ---
ASSUMING CARE OF PT AFTER BEDSIDE REPORT FROM SHAHRZAD. DR. CRUZ TO BEDSIDE FOR EVALUATION. NADN. RESENDIZ.
[2021-07-24] MEDS ORDERED: FAMOTIDINE 20 MG TABLET ONE (06:58)
[2021-07-24] MEDS ORDERED: ONDANSETRON ODT 4 MG ONE (06:59)
[2021-07-24] MEDS ORDERED: ONDANSETRON ODT 4 MG PO ONE (07:00)
[2021-07-24] MEDS ORDERED: FAMOTIDINE 20 MG TABLET PO ONE (07:00)
[2021-07-24 07:01] VITALS: BP 116/80
--- NOTE | 2021-07-24 07:03 | NUR ---
PT MEDICATED PER EMAR. LAB IN ROOM.
[2021-07-24 07:17] LABS: BASOPHILS % (AUTO) 1 % (0-1); EOSINOPHILS % (AUTO) 4 % (1-7); LYMPHOCYTES % (AUTO) 15 % (22-44); MEAN CORPUSCULAR HEMOGLOBIN 27.5 pg (27.5-34.5); MEAN CORPUSCULAR HGB CONC 32.9 g/dL (33.2-36.2); MEAN PLATELET VOLUME 7.7 fL (7.4-10.4); MONOCYTES % (AUTO) 6 % (2-9); NEUTROPHILS % (AUTO) 75 % (42-75); PLATELET COUNT 276 x10^3/uL (130-400); RED BLOOD COUNT 5.14 x10^6/uL (4.38-5.82); RED CELL DISTRIBUTION WIDTH 15.3 % (9.4-14.8)
[2021-07-24 07:26] LABS: ALBUMIN 2.8 g/dL (3.4-5.0); ANION GAP 7 mmol/L (5-15); CALCIUM 8.7 mg/dL (8.5-10.1); CHLORIDE 103 mmol/L (98-107)
[2021-07-24 07:30] LABS: ALANINE AMINOTRANSFERASE 28 U/L (12-78); ALKALINE PHOSPHATASE 139 U/L (45-117); BILIRUBIN,TOTAL 0.5 mg/dL (0.2-1.0); CREATININE 0.99 mg/dL (0.7-1.3); TOTAL PROTEIN 6.2 g/dL (6.4-8.2)
--- NOTE | 2021-07-24 07:59 | NUR ---
PT ASLEEP WITH EVEN AND UNLABORED RESPIRATIONS VSS. CHRISTPOHERN.
--- NOTE | 2021-07-24 08:52 | NUR ---
Patient given discharge instructions and they have confirmed that they understand the instructions. Patient ambulatory with steady gait. NAD, all questions answered appropriately, denies additional needs at this time. No personal belongings left in room after discharge.
== END 2021-07-24 08:53 | disposition home or self-care (01) ==
LOC: ED 06:41
DX: R11.2 Nausea with vomiting, unspecified (principal); R10.30 Lower abdominal pain, unspecified; R42 Dizziness and giddiness; F17.200 Nicotine dependence, unspecified, uncomplicated; I10 Essential (primary) hypertension; E11.65 Type 2 diabetes mellitus with hyperglycemia; J45.909 Unspecified asthma, uncomplicated; Z88.8 Allergy status to other drugs, medicaments and biological substances
CPT/HCPCS: 36415; 80053; 83690; 85025; 99283; Q0162

== ENCOUNTER 2021-07-27 00:51 | Emergency (ER) | payer BC ==
[~2021-07-27] VITALS: Ht 172.7 cm; Wt 118.0 kg
[2021-07-27 01:36] LABS: BASOPHILS % (AUTO) 1 % (0-1); EOSINOPHILS % (AUTO) 3 % (1-7); LYMPHOCYTES % (AUTO) 18 % (22-44); MEAN CORPUSCULAR HEMOGLOBIN 27.4 pg (27.5-34.5); MEAN CORPUSCULAR HGB CONC 33.1 g/dL (33.2-36.2); MEAN PLATELET VOLUME 7.9 fL (7.4-10.4); MONOCYTES % (AUTO) 8 % (2-9); NEUTROPHILS % (AUTO) 70 % (42-75); PLATELET COUNT 295 x10^3/uL (130-400); RED BLOOD COUNT 5.09 x10^6/uL (4.38-5.82); RED CELL DISTRIBUTION WIDTH 15.4 % (9.4-14.8)
[2021-07-27 01:49] LABS: ANION GAP 3 mmol/L (5-15); CALCIUM 8.3 mg/dL (8.5-10.1); CHLORIDE 105 mmol/L (98-107); CREATININE 0.88 mg/dL (0.7-1.3)
[2021-07-27 01:52] VITALS: BP 135/85
[2021-07-27] MEDS ORDERED: FAMOTIDINE 20 MG TABLET ONE (02:12)
[2021-07-27] MEDS ORDERED: FAMOTIDINE 20 MG TABLET PO ONE (02:30)
== END 2021-07-27 02:48 | disposition home or self-care (01) ==
LOC: ED 01:25
DX: R11.2 Nausea with vomiting, unspecified (principal); I10 Essential (primary) hypertension; E11.9 Type 2 diabetes mellitus without complications
CPT/HCPCS: 36415; 80048; 85025; 99283

== ENCOUNTER 2021-07-30 14:09 | Inpatient (IN) | payer BC ==
[~2021-07-30] VITALS: Ht 172.7 cm; Wt 105.0 kg
[~2021-07-30 14:09] MED LIST changes: -QUET100T PO; +QUET100T2 PO
[2021-07-30] MEDS ORDERED: OLAN10TA69 PO (14:28)
--- NOTE | 2021-07-30 14:30 | NUR ---
ASSUMED CARE OF PATIENT. PATIENT MIKIE THOMPSON FROM [facility], PT IS ON A LEGAL HOLD FROM [facility]. PT REPORTS HE HAS BEEN HEARING VOICES THAT TELL HIM TO "JUMP OFF OF SOMETHING." PT CALM AT THIS TIME. PT IS IN A GOWN AND HOSPITAL SOCKS. PT IS ON 2L NC, PT'S OXYGEN IS 87% RA. BELONGINGS LIST DONE. BELONGINGS LOCKED UP. SITTER AT DOOR. WILL CONTINUE TO MONITOR.
[2021-07-30 15:51] LABS: BASOPHILS % (AUTO) 1 % (0-1); EOSINOPHILS % (AUTO) 3 % (1-7); LYMPHOCYTES % (AUTO) 18 % (22-44); MEAN CORPUSCULAR HEMOGLOBIN 27.7 pg (27.5-34.5); MEAN CORPUSCULAR HGB CONC 32.7 g/dL (33.2-36.2); MEAN PLATELET VOLUME 7.9 fL (7.4-10.4); MONOCYTES % (AUTO) 7 % (2-9); NEUTROPHILS % (AUTO) 72 % (42-75); PLATELET COUNT 263 x10^3/uL (130-400); RED BLOOD COUNT 5.14 x10^6/uL (4.38-5.82); RED CELL DISTRIBUTION WIDTH 15.9 % (9.4-14.8)
[2021-07-30 15:56] LABS: ALBUMIN 2.8 g/dL (3.4-5.0); ANION GAP 2 mmol/L (5-15); CALCIUM 8.7 mg/dL (8.5-10.1); CHLORIDE 106 mmol/L (98-107); CREATININE 0.98 mg/dL (0.7-1.3); SALICYLATE LEVEL 1.9 mg/dL (2.8-20.0)
[2021-07-30] MEDS ORDERED: ALBUTEROL/IPRATROPIUM 2.5MG/0.5MG, 3 ML NPPB ONE (16:00)
[2021-07-30] MEDS ORDERED: ALBUTEROL/IPRATROPIUM 2.5MG/0.5MG, 3 ML ONE (16:06)
--- NOTE | 2021-07-30 16:10 | NUR ---
PT SEEN BY DR NAVARRO. PT OXYGEN IS 85% RA. PT BACK ON OXYGEN AT 2L NC. WILL CONTINUE TO MONITOR.
--- NOTE | 2021-07-30 16:22 | NUR ---
JUANJOSE, FINISH MIXER IN ROOM
--- NOTE | 2021-07-30 16:33 | NUR ---
PT ATTEMPTED BREATHALYZER AND WAS UNABLE TO HAVE A CONTINUOUS AIRFLOW TO COMPLETE TEST.
[2021-07-30] MEDS ORDERED: QUETIAPINE 25MG TABLET PO ONE (17:00)
--- NOTE | 2021-07-30 17:26 | NUR ---
PT RESTING IN ROOM. VS STABLE. PULSE OX ON. OXYGEN ON. SITTER AT DOOR. WILL CONTINUE TO MONITOR.
--- NOTE | 2021-07-30 17:33 | NUR ---
HOSPITALIST IN ROOM
[2021-07-30] MEDS ORDERED: QUETIAPINE 25MG TABLET ONE (17:41)
[2021-07-30] MEDS ORDERED: ACETAMINOPHEN 325 MG TABLET PO PRN (18:00)
[2021-07-30] MEDS ORDERED: BISACODYL 10 MG SUPP PR PRN (18:00)
[2021-07-30] MEDS ORDERED: MELATONIN 5 MG TABLET PO PRN (18:00)
[2021-07-30] MEDS ORDERED: POLYETHYLENE GLYCOL 17 GM PACKET PO PRN (18:00)
[2021-07-30] MEDS ORDERED: ENALAPRILAT 1.25 MG/ML, 2ML IVPush PRN (18:00)
[2021-07-30] MEDS ORDERED: TRAZODONE 50MG TABLET PO PRN (18:00)
[2021-07-30] MEDS ORDERED: ALBUTEROL HFA 90 MCG/SPRAY INH PRN (18:00)
[2021-07-30] MEDS ORDERED: ONDANSETRON 2MG/ML, 2ML IVPush PRN (18:00)
[2021-07-30] MEDS ORDERED: IBUPROFEN 600 MG TABLET PO PRN (18:00)
[2021-07-30] MEDS ORDERED: hydrALAzine 20 MG/ML, 1ML IVPush PRN (18:00)
[2021-07-30] MEDS ORDERED: DOCUSATE 100 MG CAPSULE PO PRN (18:00)
[2021-07-30] MEDS ORDERED: LABETALOL 5MG/ML, 20ML IVPush PRN (18:00)
--- NOTE | 2021-07-30 18:11 | NUR ---
PT HAS HAD DINNER. PT RESTING IN ROOM. PULSE OX ON. VS STABLE. WILL CONTINUE TO MONITOR.
--- NOTE | 2021-07-30 18:11 | NUR ---
SITTER AT DOOR.
--- NOTE | 2021-07-30 18:13 | NUR ---
PT IS NOT ON A LEGAL HOLD AT THIS TIME.
[2021-07-30 18:43] LABS: AMPHETAMINE SCREEN, URINE Negative (Negative); BARBITURATE SCREEN, URINE Negative (Negative); BENZODIAZEPINE SCREEN, URINE Negative (Negative); CANNABINOID SCREEN, URINE Negative (Negative); COCAINE SCREEN, URINE Negative (Negative); METHADONE SCREEN, URINE Negative (Negative); OPIATE SCREEN, URINE Negative (Negative)
[2021-07-30] MEDS ORDERED: ENOXAPARIN 40 MG/0.4 ML SQ SCH (19:30)
[2021-07-30] MEDS ORDERED: ALBUTEROL SULFATE 2.5 MG/3 ML NPPB PRN (19:30)
[2021-07-30] MEDS: FAMOTIDINE 20 MG TABLET PO SCH (20:03)
[2021-07-30 20:13] VITALS: BP 137/92
[2021-07-30] MEDS ORDERED: QUETIAPINE 100MG TABLET PO SCH (21:00)
[2021-07-30] MEDS ORDERED: BUDESONIDE 0.5 MG/2 ML INHA INH SCH (21:00)
[2021-07-31 01:15] VITALS: BP 132/80
[2021-07-31 06:01] LABS: ANION GAP 4 mmol/L (5-15); CALCIUM 8.7 mg/dL (8.5-10.1); CHLORIDE 104 mmol/L (98-107)
[2021-07-31 08:09] VITALS: BP 117/78
[2021-07-31] MEDS: FAMOTIDINE 20 MG TABLET PO SCH (08:56)
[2021-07-31] MEDS ORDERED: OLANZAPINE 10 MG TABLET PO SCH (09:00)
[2021-07-31] MEDS ORDERED: methylPREDNISolone SOD SUCC 40 MG/ML IVPush SCH (09:00)
[2021-07-31] MEDS ORDERED: FLUTICASONE/VILANTEROL 100-25MCG/INH INH SCH (09:00)
[2021-07-31] MEDS ORDERED: SODIUM CHLORIDE FLUSH 10ML SYR IVF SCH (10:30)
[2021-07-31] MEDS ORDERED: DEXTROSE 4 GM TAB.CHEW PO PRN (10:30)
[2021-07-31] MEDS ORDERED: GLUCAGON 1 MG IM PRN (10:30)
[2021-07-31] MEDS ORDERED: DEXTROSE 50%, 50ML SYRINGE IVPush PRN (10:30)
[2021-07-31] MEDS: INSULIN LISPRO 100 UNITS/ML, PEN SQ-INSULIN SCH ×2 (11:00→17:12)
[2021-07-31 13:30] VITALS: BP 127/78
[2021-07-31] MEDS ORDERED: metFORMIN 500 MG TABLET PO SCH (17:00)
== END 2021-07-31 19:53 | disposition left against medical advice (07) | DRG 189 ==
LOC: ED 14:13 → EDIP 17:17 → 3N 19:12
PROVIDERS: ADMIT Family Medicine; ATTEND Family Medicine
DX: J96.21 Acute and chronic respiratory failure with hypoxia (principal); E87.1 Hypo-osmolality and hyponatremia; F20.0 Paranoid schizophrenia; J44.1 Chronic obstructive pulmonary disease with (acute) exacerbation; R45.851 Suicidal ideations; E66.9 Obesity, unspecified; Z68.35 Body mass index [BMI] 35.0-35.9, adult; E11.9 Type 2 diabetes mellitus without complications; M19.90 Unspecified osteoarthritis, unspecified site; F17.200 Nicotine dependence, unspecified, uncomplicated; F41.1 Generalized anxiety disorder; I10 Essential (primary) hypertension; Z59.0 Homelessness; Z88.8 Allergy status to other drugs, medicaments and biological substances; Z53.29 Procedure and treatment not carried out because of patient's decision for other reasons
CPT/HCPCS: 36415; 71045; 80048; 80299; 80307; 80320; 80329; 82040; 82962; 83036; 83880; 85025; 93005; 99285; G0378; J1650; G0480; J1815; J2920; J7512

== ENCOUNTER 2021-08-07 23:22 | Emergency (ER) | payer BC ==
[~2021-08-07] VITALS: Ht 172.7 cm; Wt 115.8 kg
[2021-08-08 00:16] VITALS: BP 138/96
--- NOTE | 2021-08-08 00:22 | NUR ---
PT C/O OF THOUGHTS OF HURTING HIMSELF. PT REPORTS GOING TO [facility] TO GET A BED THEN FINDING OUT THAT THE SHELETER WAS FULL. ON WAY HOME PT STATES HE WAS BECOMING PARANOID AND EVERYONE WAS LOOKING AT [facility] HE THEN SAID HE WENT TO [employer] TO BUY MEDICATIONS BUT HAD NO WHERE CLOSE TO THE [facility] THEY NEEDED TO GET HIS MEDS. PT THEN STATED HE BEGAN TO HAVE THOUGHTS OF USING HIS MONEY TO BUY A KNIFE OPR GUN. PT ASKED IF HE WOULD HURT HHIMSELF WITH THIS KNIFE AND GUN AND HE STATED" NO, I WOULD PROBABLY NOT HURT MYSELF BUT I WOULD HAVE ONE IF I WANTED TO". PT RE[PORTS COMNG TO [facility] AFTER. PT IN BED, SAFETY PRECAUTIONS PUT INTO PLACE. GARAGE DOORS DOWN. SITTER AT BEDSE. PERSONAL BELONGNIGS COLLECTED AND SECURED IN LOCKERS. NADN AT MOMENT. VSS WHEN TESTED. WCTM.
[2021-08-08] MEDS ORDERED: OLANZAPINE ODT 10MG PO ONE (00:30)
[2021-08-08] MEDS ORDERED: OLANZAPINE ODT 10MG ONE (00:43)
--- NOTE | 2021-08-08 00:51 | NUR ---
Patient/Caregiver given discharge instructions and they have confirmed that they understand the instructions. Patient ambulatory with steady gait. NAD, all questions answered appropriately, denies additional needs at this time. No personal belongings left in room after discharge.
== END 2021-08-08 00:52 | disposition home or self-care (01) ==
LOC: ED 23:45
DX: F20.0 Paranoid schizophrenia (principal); F32.0 Major depressive disorder, single episode, mild; R45.851 Suicidal ideations; I10 Essential (primary) hypertension; E11.9 Type 2 diabetes mellitus without complications; J44.9 Chronic obstructive pulmonary disease, unspecified; F17.200 Nicotine dependence, unspecified, uncomplicated
CPT/HCPCS: 99284

== ENCOUNTER 2021-08-18 01:47 | Emergency (ER) | payer BC ==
[~2021-08-18] VITALS: Ht 172.7 cm; Wt 112.3 kg
[2021-08-18 02:08] VITALS: BP 124/86
--- NOTE | 2021-08-18 03:15 | NUR ---
[email or web address]
--- NOTE | 2021-08-18 03:30 | NUR ---
nilx2
--- NOTE | 2021-08-18 04:00 | NUR ---
NILX3
== END 2021-08-18 05:09 | disposition left against medical advice (07) ==
LOC: ED 04:56
DX: Z53.21 Procedure and treatment not carried out due to patient leaving prior to being seen by health care provider (principal)

== ENCOUNTER 2021-08-18 20:48 | Emergency (ER) | payer BC ==
[~2021-08-18] VITALS: Ht 172.7 cm; Wt 117.3 kg
[2021-08-18] MEDS ORDERED: OLANZAPINE ODT 10MG PO ONE (22:00)
[2021-08-18] MEDS ORDERED: OLANZAPINE ODT 10MG ONE (22:00)
[2021-08-18 22:03] VITALS: BP 133/74
--- NOTE | 2021-08-18 22:04 | NUR ---
pt medicated per jan, now denying SI stating, "i just need my meds to help, its why i was here last night too". pt nad, Patient given discharge instructions and they have confirmed that they understand the instructions. Patient ambulatory with steady gait. NAD, all questions answered appropriately, denies additional needs at this time. No personal belongings left in room after discharge.
== END 2021-08-18 22:07 | disposition home or self-care (01) ==
LOC: ED 21:00
DX: F32.9 Major depressive disorder, single episode, unspecified (principal)
CPT/HCPCS: 99283

== ENCOUNTER 2021-08-27 14:49 | Emergency (ER) | payer BC ==
[~2021-08-27] VITALS: Ht 172.7 cm; Wt 100.0 kg
--- NOTE | 2021-08-27 15:04 | NUR ---
REPORT RECEIVED FROM DIONE BAEZ, ASSUMING CARE OF PT AT THIS TIME
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
[2021-08-27 15:31] LABS: BASOPHILS % (AUTO) 1 % (0-1); EOSINOPHILS % (AUTO) 3 % (1-7); LYMPHOCYTES % (AUTO) 19 % (22-44); MEAN CORPUSCULAR HEMOGLOBIN 27.7 pg (27.5-34.5); MEAN CORPUSCULAR HGB CONC 33.4 g/dL (33.2-36.2); MONOCYTES % (AUTO) 8 % (2-9); NEUTROPHILS % (AUTO) 69 % (42-75); PLATELET COUNT 280 x10^3/uL (130-400); RED BLOOD COUNT 5.35 x10^6/uL (4.38-5.82); RED CELL DISTRIBUTION WIDTH 15.9 % (9.4-14.8)
[2021-08-27 15:40] LABS: AMPHETAMINE SCREEN, URINE Negative (Negative); BARBITURATE SCREEN, URINE Negative (Negative); BENZODIAZEPINE SCREEN, URINE Negative (Negative); CANNABINOID SCREEN, URINE Negative (Negative); COCAINE SCREEN, URINE Negative (Negative); METHADONE SCREEN, URINE Negative (Negative); OPIATE SCREEN, URINE Negative (Negative)
[2021-08-27 15:42] LABS: ALANINE AMINOTRANSFERASE 24 U/L (12-78); ALBUMIN 3.4 g/dL (3.4-5.0); ANION GAP 1 mmol/L (5-15); CALCIUM 8.5 mg/dL (8.5-10.1); CHLORIDE 106 mmol/L (98-107); CREATININE 0.99 mg/dL (0.7-1.3); SALICYLATE LEVEL 1.9 mg/dL (2.8-20.0)
[2021-08-27 15:47] LABS: ALKALINE PHOSPHATASE 147 U/L (45-117); BILIRUBIN,TOTAL 0.3 mg/dL (0.2-1.0); TOTAL PROTEIN 6.9 g/dL (6.4-8.2)
--- NOTE | 2021-08-27 16:21 | NUR ---
PT RESTING ON GURNEY, RESPS EVEN AND UNLABORED, NADN. SITTER WITHIN VIEW, ALL SECURITY PRECAUTIONS IN PLACE.
[2021-08-27] MEDS ORDERED: TRAZODONE 50MG TABLET PO PRN (16:30)
--- NOTE | 2021-08-27 17:07 | NUR ---
meal tray provided, allin. sitter within view, all secutiry precautions in place
--- NOTE | 2021-08-27 18:39 | NUR ---
pt resting in bed, vss, nadn. security precautions in place, sitter within view.
--- NOTE | 2021-08-27 18:46 | NUR ---
Jeff at [facility] called they are phsyically full till tomorrow
--- NOTE | 2021-08-27 19:14 | NUR ---
patient moved to room 3 for safety. patient sitting in bed comfortably. patient belongings already secured, patient public safety director outside room,, room secured. patient in not acute distress at this time
--- NOTE | 2021-08-27 19:30 | NUR ---
[facility] ([facility]) PT DOES NOT HAVE THE CORRECT INS, IT IS [facility]
--- NOTE | 2021-08-27 20:28 | NUR ---
patient sleeping in bed comfortably at this time. not acute distress from patient and not current needs at this moment
[2021-08-27] MEDS ORDERED: OLANZAPINE 5 MG TABLET PO SCH (21:00)
--- NOTE | 2021-08-27 21:00 | NUR ---
patient sleeping in bed comfortably at this time. not acute distress from patient and not current needs at this moment
--- NOTE | 2021-08-27 21:48 | NUR ---
patient sleeping in bed comfortably at this time. not acute distress from patient and not current needs at this moment
--- NOTE | 2021-08-27 22:34 | NUR ---
public safety police outside room, patient sitting in bed comfortably, patient in no acute distress at this time
--- NOTE | 2021-08-27 23:41 | NUR ---
product safety specialist outside room, patient sitting in bed comfortably, patient in no acute distress at this time
--- NOTE | 2021-08-28 00:50 | NUR ---
consultant in ergonomics and safety outside room, patient sitting in bed comfortably, patient in no acute distress at this time
--- NOTE | 2021-08-28 01:47 | NUR ---
product safety technical assistant outside room, patient sitting in bed comfortably, patient in no acute distress at this time
--- NOTE | 2021-08-28 02:28 | NUR ---
occupational health and safety officer outside room, patient sitting in bed comfortably, patient in no acute distress at this time
[2021-08-28] MEDS ORDERED: OLANZAPINE 10 MG TABLET ONE (02:53)
--- NOTE | 2021-08-28 03:33 | NUR ---
safety admin assistant outside room, patient sitting in bed comfortably, patient in no acute distress at this time
--- NOTE | 2021-08-28 04:19 | NUR ---
safety coordinator outside room, patient sitting in bed comfortably, patient in no acute distress at this time
--- NOTE | 2021-08-28 05:18 | NUR ---
radiation safety officer outside room, patient sitting in bed comfortably, patient in no acute distress at this time
--- NOTE | 2021-08-28 07:40 | NUR ---
REPORT RECEIVED. PT SLEEPING IN BED, NO DISTRESS. PT REMAINS IN SECURED ROOM, SITTER AT BEDSIDE, REMAINS ON PSYCH HOLD. MEAL TRAY ORDERED. CONT TO MONITOR.
--- NOTE | 2021-08-28 08:21 | NUR ---
PT GIVEN MEAL TRAY. PT REMAINS CALM AND COOPERATIVE, VSS. SITTER REMAINS AT BEDSIDE. CONT TO MONITOR.
--- NOTE | 2021-08-28 10:25 | NUR ---
PT REMAINS RESTING IN BED, NO DISTRESS. SITTER REMAINS AT BEDSIDE, ROOM REMAINS SECURED. ATTEMPT X1 TO CALL REPORT TO [facility], NURSE UNAVAILABLE. CONT TO MONITOR.
--- NOTE | 2021-08-28 12:00 | NUR ---
TASK RN: PT SLEEPING IN NAD, RESPIRATIONS NOTED EVEN AND UNLABORED. SITTER OUTSIDE OF ROOM FOR SAFETY.
--- NOTE | 2021-08-28 12:07 | NUR ---
TASK RN: REPORT CALLED TO YANELY AT [facility].
--- NOTE | 2021-08-28 12:15 | NUR ---
TASK RN: DONNA HERE FOR TRANSPORT TO [facility].
--- NOTE | 2021-08-28 12:25 | NUR ---
PT TRANSFERED TO [facility] BY DONNA, PER BREAK RN, PT HAS ALL OWN BELONGINGS UPON TRANSFER.
[2021-08-28 12:26] VITALS: BP 112/67
== END 2021-08-28 12:29 ==
LOC: ED 16:45
DX: R45.851 Suicidal ideations (principal); F17.200 Nicotine dependence, unspecified, uncomplicated; J44.9 Chronic obstructive pulmonary disease, unspecified; E11.9 Type 2 diabetes mellitus without complications
CPT/HCPCS: 36415; 80053; 80299; 80307; 80320; 80329; 85025; 99285; G0480